=== PATIENT | female | born 1970 | race Caucasian/White ===

== ENCOUNTER 2019-06-19 09:45 | Outpatient (CLI) | payer OTHER, SELFPAY | END 2019-06-19 09:46 | disposition home or self-care (01) | LOC: ANHBWCAUD 09:54 | PROVIDERS: PCP Internal Medicine; Visit Provider Internal Medicine | DX: H90.3 Sensorineural hearing loss, bilateral (principal) | CPT/HCPCS: 92557; 92567 ==

== ENCOUNTER 2020-05-13 10:04 | Outpatient (CLI) | payer OTHER, SELFPAY | END 2020-05-13 10:05 | disposition home or self-care (01) | LOC: ANHBWCAUD 10:04 | PROVIDERS: PCP Internal Medicine; Visit Provider Internal Medicine | DX: H91.93 Unspecified hearing loss, bilateral (principal) | CPT/HCPCS: 92557; 92567 ==

== ENCOUNTER 2020-05-23 12:06 | Outpatient (RCR) | payer OTHER, SELFPAY | END 2020-08-21 23:59 | disposition home or self-care (01) | LOC: ANHBWCAUD 12:06 | PROVIDERS: PCP Internal Medicine; Visit Provider Internal Medicine | DX: Z46.1 Encounter for fitting and adjustment of hearing aid (principal) | CPT/HCPCS: V5160; V5261 ==

== ENCOUNTER 2020-07-07 13:00 | Emergency (ER) | payer OTHER, SELFPAY ==
--- NOTE | ~2020-07-07 | XR_ITS ---
EXAMINATION: XR chest 2V EXAM DATE: 07/07/2020 13:46 INDICATION: Cough for one week. Asthma. TECHNIQUE: Frontal and lateral projections of the chest obtained and reviewed. Comparison is made to prior examination from 01/22/2016. FINDINGS: The lungs are clear. There are no pleural effusions. The cardiomediastinal silhouette is within normal limits. There is no pneumothorax suspected. The bones and soft tissues are unremarkab le. IMPRESSION: No acute cardiopulmonary findings. Reviewed, dictated and finalized at location B.
--- NOTE | 2020-07-07 13:03 | ED.URI ---
HPI - URI/Sore Throat General Chief Complaint: Upper Respiratory Infection Stated Complaint: coughing and asthma trouble fever Time Seen by Provider: 07/07/20 13:04 Source: patient and RN notes reviewed History of Present Illness HPI Narrative: Patient is a 49-year-old female who presents the urgent care with complaints of cough, fever, and intermittent shortness of breath due to asthma exacerbation. Patient is very anxious and tearful. Patient states that last time she had the symptoms she was diagnosed with pneumonia and in the hospital . Patient states that she started the symptoms approximately 1-1/2 weeks ago and has taken a Z-Sukhi, completed 3 days ago. Patient states her PCP is aware of her symptoms. States that she has not had a productive cough and it feels like she has a lot of chest congestion . Patient has been using her nebulizers at home which do improve her symptoms. No other acute complaints. No acute distress noted. Patient aware of the plan of care. Some parts of this dictation were generated by voice recognition software and may contain typographical and/or grammatical inaccuracies. Related Data Home Medications Medication Instructions Recorded Confirmed albuterol sulfate 90 mcg INHALATION DIRECTED PRN 07/07/20 07/07/20 buspirone 7.5 mg PO BID 07/07/20 07/07/20 famotidine 20 mg PO BID 07/07/20 07/07/20 levothyroxine 112 mcg PO DAILY 07/07/20 07/07/20 loratadine 10 mg PO DAILY 07/07/20 07/07/20 montelukast 10 mg PO DAILY 07/07/20 07/07/20 simvastatin 10 mg PO DAILY 07/07/20 07/07/20 Allergies Allergy/AdvReac Type Severity Reaction Status Date / Time codeine AdvReac Unknown Nausea and Verified 07/07/20 13:15 Vomiting Penicillins AdvReac Unknown Nausea and Verified 07/07/20 13:15 Vomiting Review of Systems Review of Systems: Narrative: CONSTITUTIONAL: Reports of intermittent fevers EYES: Denies visual changes, redness, or discharge. ENT: Denies rhinorrhea, congestion, sore throat, or otalgia. CARDIOVASCULAR: Denies chest pain, palpitations, or edema. RESPIRATORY: Reports of dry cough with intermittent dyspnea and chest congestion GASTROINTESTINAL: Denies abdominal pain, nausea, vomiting, or diarrhea. GENITOURINARY: Denies dysuria or hematuria. SKIN: Denies rash or itching. MUSCULOSKELETAL: Denies back pain, joint pain, or myalgia. NEUROLOGIC: Denies headache, numbness, or weakness. All other systems reviewed are negative, except as documented in HPI. PMFSH Social History Social History Gender identity (if verbalized by the patient): Female Comments At the time of my signature, I reviewed and agree with the nursing past medical, surgical, social, and family history. There is no relevant family history pertinent to the patient complaint. Exam Narrative: Exam Narrative: GENERAL: This is a well-nourished, well-developed patient, in no apparent distress. HEAD: normocephalic, atraumatic. EYES: PERRL. Sclera clear/white. Vision is grossly intact. EARS: External ears normal, auditory canals clear and without drainage, TMs normal without perforation. Hearing grossly intact. NOSE: External nose normal with no obvious nasal discharge, nares without redness, no rhinorrhea. THROAT: Mucous membranes moist, posterior pharynx clear. Mild postnasal drainage NECK: Neck supple, non-tender without lymphadenopathy CARDIOVASCULAR: Regular rate and rhythm without murmurs, gallops, or rubs. RESPIRATORY: Expiratory crackles to right upper lobe and bibasilar. SKIN: warm, intact with no suspicious lesions or rash, good texture and turgor. NEURO: awake, alert, and oriented to person, place and time. There were no obvious focal neurologic abnormalities. EXTREMITIES: No clubbing, cyanosis, or edema. Course Vital Signs Vital signs: Vital Signs Temperature 98.9 F 07/07/20 13:06 Pulse Rate 92 07/07/20 13:06 Respiratory Rate 21 H 07/07/20 13:06 Blood Pressure 125/110 H 07/07/20 13:06 Pulse Oxime
[2020-07-07 13:06] VITALS: BP 125/110; PULSE 92; RESP 21; TEMP 37.2; O2SAT 100
[2020-07-07 13:50] VITALS: BP 128/96
== END 2020-07-07 14:19 | disposition home or self-care (01) ==
PROVIDERS: Emergency Provider Nurse Practitioner Family; PCP Internal Medicine
DX: R05 Cough (principal); E78.00 Pure hypercholesterolemia, unspecified; J45.909 Unspecified asthma, uncomplicated; K21.9 Gastro-esophageal reflux disease without esophagitis; E03.9 Hypothyroidism, unspecified; M19.90 Unspecified osteoarthritis, unspecified site; F41.0 Panic disorder [episodic paroxysmal anxiety]
CPT/HCPCS: 71046; 99213; G0463

== ENCOUNTER 2020-08-26 18:26 | Emergency (ER) | payer OTHER, SELFPAY ==
[2020-08-26 18:35] VITALS: BP 131/88; PULSE 99; RESP 18; TEMP 37.2; O2SAT 100
--- NOTE | 2020-08-26 18:44 | ED.URI ---
HPI - URI/Sore Throat General Chief Complaint: Upper Respiratory Infection Stated Complaint: fever sore throat Time Seen by Provider: 08/26/20 19:12 Source: patient and RN notes reviewed Mode of arrival: ambulatory Limitations: no limitations History of Present Illness HPI Narrative: 49-year-old female presents concern for sore throat, hoarse voice, painful swallowing, low-grade fever. Reports symptoms started yesterday. Reports she has been taking Tylenol with little relief. She denies rhinorrhea, nasal congestion, headache, fever, chills, body aches, cough, shortness of breath. She denies any known sick contacts. MD elicited complaint: sore throat Related Data Home Medications Medication Instructions Recorded Confirmed albuterol sulfate 90 mcg INHALATION DIRECTED PRN 07/07/20 08/26/20 buspirone 7.5 mg PO BID 07/07/20 08/26/20 famotidine 20 mg PO BID 07/07/20 08/26/20 levothyroxine 112 mcg PO DAILY 07/07/20 08/26/20 loratadine 10 mg PO DAILY 07/07/20 08/26/20 montelukast 10 mg PO DAILY 07/07/20 08/26/20 simvastatin 10 mg PO DAILY 07/07/20 08/26/20 beclomethasone dipropionate [Qvar 40 mcg INHALATION BID 08/26/20 08/26/20 RediHaler] omeprazole 20 mg PO DAILY 08/26/20 08/26/20 Allergies Allergy/AdvReac Type Severity Reaction Status Date / Time codeine AdvReac Unknown Nausea and Verified 07/07/20 13:15 Vomiting Penicillins AdvReac Unknown Nausea and Verified 07/07/20 13:15 Vomiting Review of Systems Review of Systems: Narrative: CONSTITUTIONAL: Denies malaise, chills, sweats, or fever. EYES: Denies visual changes, redness, or discharge. ENT: Denies rhinorrhea, congestion, sinus pain, otalgia. She reports hoarse voice and sore throat. CARDIOVASCULAR: Denies chest pain, palpitations, or edema. RESPIRATORY: Denies cough or dyspnea. GASTROINTESTINAL: Denies abdominal pain, nausea, vomiting, diarrhea SKIN: Denies rash or itching. MUSCULOSKELETAL: Denies myalgia. NEUROLOGIC: Denies headache. All systems reviewed & are unremarkable except as noted in HPI and below PMFSH Social History Social History Gender identity (if verbalized by the patient): Female Comments At time of signature, agree with nursing past medical, surgical, social and family history. There is no relevant family history pertinent to the presenting complaint Exam Narrative: Exam Narrative: GENERAL: Well-appearing, well-nourished, and in no acute distress. HEAD: Normocephalic EYES: PERRLA, conjunctivae clear ENT: Nares clear, turbinates erythematous, clear discharge. Mucous membranes moist. TM pearly spring with sharp light reflex bilaterally; no tragal tenderness. Oropharynx mildly erythematous without lesions. Tonsils not enlarged and without exudate, no drooling, no hoarseness, no trismus, uvula midline. NECK: Supple. No lymphadenopathy CHEST: Clear to auscultation, breath sounds equal. No wheezing, rhonchi, rales, or stridor. No respiratory distress, speaks in full sentences. HEART: Regular rate and rhythm. No murmur heard. SKIN: Warm, dry, no rash. NEURO: Alert and oriented x3. PSYCH: Normal mood and affect Course Course Emergency Course: Patient is aware of diagnosis, understands and agrees to treatment plan. Anticipatory guidance given. Patient agrees to follow-up as directed and is aware of reasons to seek care at the emergency department. Portions of this record may have been created with voice recognition software Vital Signs Vital signs: Vital Signs Temperature 98.9 F 08/26/20 18:35 Pulse Rate 99 08/26/20 18:35 Respiratory Rate 18 08/26/20 18:35 Blood Pressure 131/88 08/26/20 18:35 Pulse Oximetry 100 08/26/20 18:35 Temperature 98.9 F 08/26/20 18:35 Pulse Rate 99 08/26/20 18:35 Respiratory Rate 18 08/26/20 18:35 Blood Pressure 131/88 08/26/20 18:35 Pulse Oximetry 100 08/26/20 18:35 Reviewed. MDM - URI/Sore Throat MDM Narrative Medical decision making narrative: Differential di
== END 2020-08-26 19:25 | disposition home or self-care (01) ==
PROVIDERS: Emergency Provider Nurse Practitioner; PCP Internal Medicine
DX: J02.9 Acute pharyngitis, unspecified (principal)
CPT/HCPCS: 87081; 87880; 99213; G0463

== ENCOUNTER 2021-12-09 18:00 | Emergency (ER) | payer OTHER, SELFPAY ==
--- NOTE | 2021-12-09 18:02 | ED.URI ---
HPI - URI/Sore Throat General Stated Complaint: sore throat runny nose Ear headache Time Seen by Provider: 12/09/21 18:01 Source: patient Mode of arrival: ambulatory Limitations: no limitations History of Present Illness HPI Narrative: Nuria is a 50-year-old female patient presenting to the clinic today with complaints of sore throat, low-grade fever, runny nose, earache and headache since Tuesday She reports she was at [facility] last week and developed the symptoms on Tuesday. MD elicited complaint: sore throat and nasal congestion Related Data Home Medications Medication Instructions Recorded Confirmed albuterol sulfate 90 mcg/actuation 90 mcg inhalation DIRECTED PRN 07/07/20 08/26/20 aerosol inhaler Shortness Of Breath Or Wheezing buspirone 7.5 mg tablet 7.5 mg PO BID 07/07/20 08/26/20 famotidine 20 mg tablet 20 mg PO BID 07/07/20 08/26/20 levothyroxine 112 mcg tablet 112 mcg PO DAILY 07/07/20 08/26/20 loratadine 10 mg tablet 10 mg PO DAILY 07/07/20 08/26/20 montelukast 10 mg tablet 10 mg PO DAILY 07/07/20 08/26/20 simvastatin 10 mg tablet 10 mg PO DAILY 07/07/20 08/26/20 beclomethasone dipropionate 40 40 mcg inhalation BID 08/26/20 08/26/20 mcg/actuation HFA breath activated aerosol (Qvar RediHaler) omeprazole 20 mg capsule,delayed 20 mg PO DAILY 08/26/20 08/26/20 release Allergies Allergy/AdvReac Type Severity Reaction Status Date / Time codeine AdvReac Unknown Nausea and Verified 07/07/20 13:15 Vomiting Penicillins AdvReac Unknown Nausea and Verified 07/07/20 13:15 Vomiting Review of Systems Review of Systems: Pertinent positives per HPI. Patient denies any fever, chills, rash, visual changes, dizziness, cough, shortness of breath, chest pain, palpitations, nausea, vomiting, diarrhea, constipation, abdominal pain, or any urinary issues. [facility] Social History Social History Gender identity (if verbalized by the patient): Female Comments At the time of my signature, I reviewed and agree with the nursing past medical, surgical, social, and family history. There is no relevant family history pertinent to the patient complaint. Exam Narrative: General: Well-developed, well nourished, in no apparent distress Head: Normocephalic, atraumatic Eyes: Pupils equally round and reactive to light bilaterally, EOM intact, sclera and conjunctive clear, no discharge, lids normal Ears: TMs intact and clear, ear canals clear, no drainage, grossly hearing normal. Nose: Nares patent, no discharge, no inflammation, no sinus tenderness. Mouth: Oral pharynx without lesions or masses, good dentition, MMM. Neck: Supple, trachea midline, no enlargement of anterior or posterior cervical nodes, no thyroid masses or goiter palpable. Cardio: Regular rate and rhythm, s1 and s2 normal, no murmur appreciated. Resp: Clear to auscultation bilaterally, no rhonchi, rales, wheezing or rubs Course Course Emergency Course: Portions of this record may have been created with voice recognition software. Level of Care: Express Care Visit Vital Signs Vital signs: Vital signs reviewed MDM - URI/Sore Throat MDM Narrative Medical decision making narrative: At the time of visit patient is resting comfortably on exam table. Strep, COVID, influenza test were obtained and were negative in the clinic today. We will send strep for culture. I suspect the patient has an upper respiratory infection/viral syndrome. Supportive measures were discussed with the patient she voiced understanding of discharge instructions and agrees to treatment plan Differential Diagnosis Differential diagnosis: Likely upper respiratory infection, otitis media, sinusitis, viral infection, bronchitis, influenza, pharyngitis and other (COVID) Discharge Plan Discharge Clinical Impression: Viral infection Upper respiratory infection Qualifiers: URI type: unspecified viral URI Qual
[2021-12-09 18:09] VITALS: BP 128/83; PULSE 102; RESP 16; TEMP 36.6; O2SAT 99
== END 2021-12-09 18:41 | disposition home or self-care (01) ==
PROVIDERS: Emergency Provider Nurse Practitioner Family; PCP Internal Medicine
DX: B34.9 Viral infection, unspecified (principal); J06.9 Acute upper respiratory infection, unspecified; Z20.822 Contact with and (suspected) exposure to COVID-19; E78.00 Pure hypercholesterolemia, unspecified; J45.909 Unspecified asthma, uncomplicated; K21.9 Gastro-esophageal reflux disease without esophagitis; M19.90 Unspecified osteoarthritis, unspecified site; E03.9 Hypothyroidism, unspecified
CPT/HCPCS: 87081; 87426; 87804; 87880; 99213; C9803; G0463

== ENCOUNTER 2022-05-13 08:56 | Emergency (ER) | payer OTHER, SELFPAY ==
[2022-05-13 09:09] VITALS: BP 140/52; PULSE 53; RESP 16; TEMP 36.3; O2SAT 99
--- NOTE | 2022-05-13 09:10 | ED.URI ---
HPI - URI/Sore Throat General Chief Complaint: Upper Respiratory Infection Stated Complaint: Body Aches/Congestion Time Seen by Provider: 05/13/22 09:25 Source: patient and RN notes reviewed Mode of arrival: ambulatory Limitations: no limitations History of Present Illness HPI Narrative: 51-year-old female presents concern for nasal congestion, rhinorrhea, scratchy throat, generalized body aches that started yesterday. Reports a diagnosis of fibromyalgia for which she takes no daily medications. She denies shortness of breath, fever, chills. She reports her has similar symptoms. She has been taking NSAIDs and allergy medicine MD elicited complaint: cough and sore throat Related Data Home Medications Medication Instructions Recorded Confirmed albuterol sulfate 90 mcg/actuation 90 mcg inhalation DIRECTED PRN 07/07/20 05/13/22 aerosol inhaler Shortness Of Breath Or Wheezing buspirone 7.5 mg tablet 7.5 mg PO BID 07/07/20 05/13/22 famotidine 20 mg tablet 20 mg PO BID 07/07/20 05/13/22 levothyroxine 112 mcg tablet 112 mcg PO DAILY 07/07/20 05/13/22 loratadine 10 mg tablet 10 mg PO DAILY 07/07/20 05/13/22 montelukast 10 mg tablet 10 mg PO DAILY 07/07/20 05/13/22 simvastatin 10 mg tablet 10 mg PO DAILY 07/07/20 05/13/22 beclomethasone dipropionate 40 40 mcg inhalation BID 08/26/20 05/13/22 mcg/actuation HFA breath activated aerosol (Qvar RediHaler) omeprazole 20 mg capsule,delayed 20 mg PO DAILY 08/26/20 05/13/22 release Allergies Allergy/AdvReac Type Severity Reaction Status Date / Time codeine AdvReac Unknown Nausea and Verified 05/13/22 09:10 Vomiting Penicillins AdvReac Unknown Nausea and Verified 05/13/22 09:10 Vomiting Review of Systems Review of Systems: CONSTITUTIONAL: Reports malaise,. Denies fever. EYES: Denies visual changes, redness, or discharge. ENT: Reports rhinorrhea, congestion, and sore throat. Denies sinus pain, otalgia CARDIOVASCULAR: Denies chest pain, palpitations, or edema. RESPIRATORY: Denies cough. Denies dyspnea. GASTROINTESTINAL: Denies abdominal pain, nausea, vomiting, diarrhea SKIN: Denies rash or itching. MUSCULOSKELETAL: Reports myalgia. NEUROLOGIC: Denies headache. All systems reviewed & are unremarkable except as noted in HPI and below PMFSH Social History Social History Gender identity (if verbalized by the patient): Female Comments At time of signature, agree with nursing past medical, surgical, social and family history. There is no relevant family history pertinent to the presenting complaint Exam Narrative: GENERAL: Nontoxic-appearing and in no acute distress. HEAD: Normocephalic EYES: PERRLA, conjunctivae clear ENT: Nares clear, turbinates edematous and erythematous, clear discharge. Mucous membranes moist. TM pearly spring with dull light reflex bilaterally; no tragal tenderness. Oropharynx not erythematous without lesions. Tonsils not enlarged and without exudate, no drooling, no hoarseness, no trismus, uvula midline. NECK: Supple. No lymphadenopathy CHEST: Clear to auscultation, breath sounds equal. No wheezing, rhonchi, rales, or stridor. No respiratory distress, speaks in full sentences. HEART: Regular rate and rhythm. No murmur heard. SKIN: Warm, dry, no rash. NEURO: Alert and oriented x3. PSYCH: Normal mood and affect Course Course Emergency Course: Patient is aware of diagnosis, understands and agrees to treatment plan. Anticipatory guidance given. Patient agrees to follow-up as directed and is aware of reasons to seek care at the emergency department. Portions of this record may have been created with voice recognition software Level of Care: Express Care Visit Vital Signs Vital signs: Reviewed. MDM - URI/Sore Throat MDM Narrative Medical decision making narrative: Differential diagnosis considered: Barrera virus, strep pharyngitis, allergic rhinitis, upper respira
== END 2022-05-13 10:01 | disposition home or self-care (01) ==
PROVIDERS: Emergency Provider Nurse Practitioner; PCP Internal Medicine
DX: U07.1 COVID-19 (principal); E78.00 Pure hypercholesterolemia, unspecified; J45.909 Unspecified asthma, uncomplicated; M19.90 Unspecified osteoarthritis, unspecified site; E03.9 Hypothyroidism, unspecified; F41.9 Anxiety disorder, unspecified; F41.0 Panic disorder [episodic paroxysmal anxiety]
CPT/HCPCS: 87081; 87426; 87804; 87880; 99213; C9803; G0463

== ENCOUNTER 2022-10-07 16:12 | Emergency (ER) | payer OTHER, SELFPAY ==
--- NOTE | 2022-10-07 16:26 | ED.GENADULT ---
HPI - General Adult General Chief complaint: Nausea/Vomiting/Diarrhea Stated complaint: Diarrhea and Body Ache Source: patient and RN notes reviewed History of Present Illness HPI narrative: 51 yo F presents to urgent care with complaints of nausea, diarrhea, CHAN, and body aches. Pt states she has had these symptoms for the last 4 days. Pt denies any vomiting or abdominal cramping but states her stomach lining hurts, like when you get sunburnt and the skin peels off. Pt states she began having dysuria yesterday. Denies any chest pain, SOB, dizziness, or other complaints. Pt has taken immodium at home with good relief. Related Data Home Medications Medication Instructions Recorded Confirmed albuterol sulfate 90 mcg/actuation 90 mcg inhalation DIRECTED PRN 07/07/20 05/13/22 aerosol inhaler Shortness Of Breath Or Wheezing buspirone 7.5 mg tablet 7.5 mg PO BID 07/07/20 05/13/22 famotidine 20 mg tablet 20 mg PO BID 07/07/20 05/13/22 levothyroxine 112 mcg tablet 112 mcg PO DAILY 07/07/20 05/13/22 loratadine 10 mg tablet 10 mg PO DAILY 07/07/20 05/13/22 montelukast 10 mg tablet 10 mg PO DAILY 07/07/20 05/13/22 simvastatin 10 mg tablet 10 mg PO DAILY 07/07/20 05/13/22 beclomethasone dipropionate 40 40 mcg inhalation BID 08/26/20 05/13/22 mcg/actuation HFA breath activated aerosol (Qvar RediHaler) omeprazole 20 mg capsule,delayed 20 mg PO DAILY 08/26/20 05/13/22 release Allergies Allergy/AdvReac Type Severity Reaction Status Date / Time codeine AdvReac Unknown Nausea and Verified 05/13/22 09:10 Vomiting Penicillins AdvReac Unknown Nausea and Verified 05/13/22 09:10 Vomiting Review of Systems Review of Systems: Pertinent positives and pertinent negatives per HPI. [facility] Social History Social History Gender identity (if verbalized by the patient): Female Comments At the time of my signature, I reviewed and agree with the nursing past medical, surgical, social, and family history. There is no relevant family history pertinent to the patient complaint. Exam Narrative: GENERAL: This is a well-nourished, well-developed patient, in no apparent distress. HEAD: normocephalic, atraumatic. EYES: Sclera clear/white. Vision is grossly intact. EARS: External ears normal, auditory canals clear and without drainage. Hearing grossly intact. NOSE: External nose normal with no obvious nasal discharge, nares without redness, no rhinorrhea. THROAT: Mucous membranes moist, posterior pharynx clear. NECK: Neck supple, non-tender without lymphadenopathy, masses or thyromegaly. CARDIOVASCULAR: Regular rate and rhythm without murmurs, gallops, or rubs. RESPIRATORY: Clear to auscultation. Breath sounds equal bilaterally. No wheezes, rales, or rhonchi. GASTROINTESTINAL: Abdomen soft, non-tender, nondistended. Bowel sounds are active. No hepato-splenomegaly, or palpable masses. No guarding. SKIN: warm, intact with no suspicious lesions or rash, good texture and turgor. NEURO: awake, alert, and oriented to person, place and time. There were no obvious focal neurologic abnormalities. Course Course Level of Care: Express Care Visit Vital Signs Vital signs: Reviewed Medical Decision Making MDM Narrative Medical decision making narrative: You've been diagnosed with a viral illness that would not require antibiotics at this time. Take the Zofran ODT at home as directed for nausea and get plenty of fluids. You may take Imodium for diarrhea. If you would like to eat food, you should follow the BRAT diet (bananas, rice, applesauce, and toast, or things of the like). If you develop any new or worsening symptoms, you should go to the emergency dept without hesitation. Follow up with your magnetic grinder operator in 2-5 days. We will send a urine culture off to the lab; if the culture identifies an organism that the prescribed antibiotic will not treat, you will receive a
[2022-10-07 16:28] VITALS: BP 127/60; PULSE 77; RESP 16; TEMP 36.5; O2SAT 98
== END 2022-10-07 16:51 | disposition home or self-care (01) ==
PROVIDERS: Emergency Provider Nurse Practitioner Family; PCP Internal Medicine
DX: K52.9 Noninfective gastroenteritis and colitis, unspecified (principal); N39.0 Urinary tract infection, site not specified; E78.00 Pure hypercholesterolemia, unspecified; J45.909 Unspecified asthma, uncomplicated; M19.90 Unspecified osteoarthritis, unspecified site; E03.9 Hypothyroidism, unspecified
CPT/HCPCS: 81003; 87086; 87088; 99213; G0463

== ENCOUNTER 2022-12-06 16:15 | Emergency (ER) | payer OTHER, SELFPAY ==
[2022-12-06 16:25] VITALS: BP 147/72; PULSE 85; RESP 20; TEMP 36.7; O2SAT 98
--- NOTE | 2022-12-06 16:43 | ED.URI ---
HPI - URI/Sore Throat General Chief Complaint: Upper Respiratory Infection Stated Complaint: head congestion/throat History of Present Illness HPI Narrative: PATIENT PRESENTS WITH NASAL CONGESTION COUGH RUNNY NOSE. NO FEVER NO SHORTNESS OF BREATH NO CHEST PAIN. Related Data Home Medications Medication Instructions Recorded Confirmed albuterol sulfate 90 mcg/actuation 90 mcg inhalation DIRECTED PRN 07/07/20 12/06/22 aerosol inhaler Shortness Of Breath Or Wheezing buspirone 7.5 mg tablet 7.5 mg PO BID 07/07/20 12/06/22 famotidine 20 mg tablet 20 mg PO BID 07/07/20 12/06/22 levothyroxine 112 mcg tablet 112 mcg PO DAILY 07/07/20 12/06/22 loratadine 10 mg tablet 10 mg PO DAILY 07/07/20 12/06/22 montelukast 10 mg tablet 10 mg PO DAILY 07/07/20 12/06/22 simvastatin 10 mg tablet 10 mg PO DAILY 07/07/20 12/06/22 beclomethasone dipropionate 40 40 mcg inhalation BID 08/26/20 12/06/22 mcg/actuation HFA breath activated aerosol (Qvar RediHaler) omeprazole 20 mg capsule,delayed 20 mg PO DAILY 08/26/20 12/06/22 release Allergies Allergy/AdvReac Type Severity Reaction Status Date / Time codeine AdvReac Unknown Nausea and Verified 12/06/22 16:34 Vomiting Penicillins AdvReac Unknown Nausea and Verified 12/06/22 16:34 Vomiting Review of Systems Review of Systems: CONSTITUTIONAL: DENIES CHILLS, OR SWEATS. REPORTS FEVER AND GENERALIZED BODY ACHES EYES: DENIES VISUAL CHANGES, REDNESS, OR DISCHARGE. ENT: DENIES OTALGIA. REPORTS NASAL CONGESTION RUNNY NOSE AND SORE THROAT CARDIOVASCULAR: DENIES CHEST PAIN, PALPITATIONS, OR EDEMA. RESPIRATORY: DENIES DYSPNEA. REPORTS OCCASIONAL COUGH GASTROINTESTINAL: DENIES ABDOMINAL PAIN, NAUSEA, VOMITING, OR DIARRHEA. GENITOURINARY: DENIES DYSURIA OR HEMATURIA. SKIN: DENIES RASH OR ITCHING. MUSCULOSKELETAL: DENIES BACK PAIN, JOINT PAIN, OR MYALGIA. REPORTS GENERALIZED BODY ACHES NEUROLOGIC: DENIES HEADACHE, NUMBNESS, OR WEAKNESS. PSYCHIATRIC: DENIES ANXIETY OR DEPRESSION. [facility] Social History Social History (Reviewed 12/09/21 @ 18:03 by MARIPOSA Vickers Gender identity (if verbalized by the patient): Female Comments AT TIME OF SIGNATURE, AGREE WITH NURSING PAST MEDICAL, SURGICAL, SOCIAL AND FAMILY HISTORY. THERE IS NO RELEVANT FAMILY HISTORY PERTINENT TO THE PRESENTING COMPLAINT Exam Narrative: THE PATIENT IS A WELL-DEVELOPED, WELL-NOURISHED IN NO ACUTE DISTRESS. SKIN: SKIN IS WARM AND DRY WITHOUT ERYTHEMA, SWELLING OR EXUDATE. THERE IS GOOD TURGOR. NO TENTING. HEAD: ATRAUMATIC. NORMOCEPHALIC. NO TEMPORAL OR SCALP TENDERNESS. EYES: MOIST AND BRIGHT. SCLERA AND CONJUNCTIVAE NORMAL. NO DISCHARGE. PERRLA. EXTRAOCULAR MOTIONS INTACT. GROSS VISUAL ACUITY INTACT. EARS: PINNA IS NORMAL SHAPE AND CONTOUR. CLEAR EXTERNAL AUDITORY CANALS. TM PEARLY RICHARDSON WITH GOOD CONE OF LIGHT, NO ERYTHEMA OR SUPPURATION. BILATERAL CERUMEN NOTED NO GROSS HEARING DEFICIT. NOSE: PINK, MOIST MUCOSA WITH GOOD AIR MOVEMENT. CLEAR RHINORRHEA WITHOUT NASAL FLARING. SEPTUM MIDLINE. MOUTH: MOIST MUCOUS MEMBRANES. THROAT; MILD ERYTHEMA NOTED TO POSTERIOR OROPHARYNX WITH MODERATE POSTNASAL DRAINAGE. WITHOUT EXUDATE OR ULCERATION.. UVULA MIDLINE. NORMAL MOVEMENT OF SOFT PALATE. NECK: SUPPLE AND NONTENDER WITH FULL RANGE OF MOTION WITHOUT DISCOMFORT. NO MENINGEAL SIGNS. LUNGS: EQUAL AND BILATERAL BREATH SOUNDS WITHOUT WHEEZES, RALES OR RHONCHI. CHEST: THE CHEST WALL IS WITHOUT RETRACTIONS OR USE OF ACCESSORY MUSCLES. HEART: HAS A REGULAR RATE AND RHYTHM WITHOUT MURMUR, GALLOPS, CLICK OR RUB. ABDOMEN: SOFT, NONTENDER WITH POSITIVE ACTIVE BOWEL SOUNDS. NO REBOUND TENDERNESS. EXTREMITIES: WITHOUT CYANOSIS, CLUBBING OR EDEMA. EQUAL 2+ DISTAL PULSES AND 2 SECOND CAPILLARY REFILL NOTED. NEUROLOGIC: ALERT, ACTIVE, . THE PATIENT MOVES ALL EXTREMITIES WITH NORMAL MUSCLE STRENGTH. NORMAL MUSCLE TONE IS NOTED. NORMAL COORDINATION IS NOTED. NO FOCAL NEUROLOGICAL FINDINGS NOTED. Course Course Level of Care
== END 2022-12-06 16:48 | disposition home or self-care (01) ==
PROVIDERS: Emergency Provider Nurse Practitioner Family; PCP Internal Medicine
DX: J06.9 Acute upper respiratory infection, unspecified (principal); Z79.899 Other long term (current) drug therapy
CPT/HCPCS: 99213; G0463

== ENCOUNTER 2022-12-23 18:32 | Emergency (ER) | payer OTHER, SELFPAY ==
[2022-12-23 18:41] VITALS: BP 151/71; PULSE 93; RESP 18; TEMP 36.3; O2SAT 97
[2022-12-23 18:52] VITALS: BP 151/71; PULSE 93; RESP 18; TEMP 36.3; O2SAT 97
--- NOTE | 2022-12-23 19:24 | ED.URI ---
HPI - URI/Sore Throat General Chief Complaint: Upper Respiratory Infection Stated Complaint: Diarrhea/Cough/Body Aches Time Seen by Provider: 12/23/22 18:55 Source: patient, RN notes reviewed and old records reviewed Mode of arrival: ambulatory Limitations: no limitations History of Present Illness HPI Narrative: 52-year-old female who presents to [facility] with complaints having COVID 2 weeks ago, and completed steroid one week ago. having runny nose, cough, stuffy nose , doesn't feel well since yesterday. Patient reports that her asthma is bothering her today and she has cough, feels tired, had some diarrhea, feels hot and cold and also had low grade fevers and achy. Saw her PCP last Tuesday told her to rest. drink lots of fluids and soup MD elicited complaint: cough and sore throat Pertinent past history: asthma Onset (ago): week(s) (2) Able to tolerate fluids by mouth: Yes Treatments prior to arrival: other (Aleve, inhaler, finished steroid) Related Data Home Medications Medication Instructions Recorded Confirmed albuterol sulfate 90 mcg/actuation 90 mcg inhalation DIRECTED PRN 07/07/20 12/23/22 aerosol inhaler Shortness Of Breath Or Wheezing buspirone 7.5 mg tablet 7.5 mg PO BID 07/07/20 12/23/22 famotidine 20 mg tablet 20 mg PO BID 07/07/20 12/23/22 levothyroxine 112 mcg tablet 112 mcg PO DAILY 07/07/20 12/23/22 loratadine 10 mg tablet 10 mg PO DAILY 07/07/20 12/23/22 montelukast 10 mg tablet 10 mg PO DAILY 07/07/20 12/23/22 simvastatin 10 mg tablet 10 mg PO DAILY 07/07/20 12/23/22 beclomethasone dipropionate 40 40 mcg inhalation BID 08/26/20 12/23/22 mcg/actuation HFA breath activated aerosol (Qvar Redaler) omeprazole 20 mg capsule,delayed 20 mg PO DAILY 08/26/20 12/23/22 release fluticasone propionate 50 intranasal 12/23/22 mcg/actuation nasal spray,suspension gabapentin 100 mg capsule 100 mg PO HS 12/23/22 12/23/22 tizanidine 4 mg tablet 4 mg PO BID 12/23/22 12/23/22 Allergies Allergy/AdvReac Type Severity Reaction Status Date / Time codeine AdvReac Unknown Nausea and Verified 12/23/22 18:48 Vomiting Penicillins AdvReac Unknown Nausea and Verified 12/23/22 18:48 Vomiting Review of Systems Review of Systems: CONSTITUTIONAL: Reports malaise, chills, sweats, or fever. EYES: Denies visual changes, redness, or discharge. ENT: Reports rhinorrhea, congestion, sinus pain, no otalgia and intermittent sore throat. CARDIOVASCULAR: Denies chest pain, palpitations, or edema. RESPIRATORY: Reports cough.? Denies dyspnea. GASTROINTESTINAL: Denies abdominal pain, nausea, vomiting, some diarrhea SKIN: Denies rash or itching. MUSCULOSKELETAL: reports feels achy NEUROLOGIC: Denies headache. All systems reviewed & are unremarkable except as noted in HPI and below PMFSH Past Medical History Medical History (Updated 12/26/22 @ 20:29 by Brittany Hirsch NP) Anxiety and depression Asthma Bronchitis GERD (gastroesophageal reflux disease) Pneumonia Umbilical hernia repair Surgical History Surgical History (Updated 12/26/22 @ 20:26 by Brittany Hirsch NP) History of cataract surgery Tubal ligation status Social History Social History Gender identity (if verbalized by the patient): Female Comments At time of signature, agree with nursing past medical, surgical, social and family history. There is no relevant family history pertinent to the presenting complaint Exam Narrative: GENERAL: Well-appearing, well-nourished, and in no acute distress. HEAD: Normocephalic EYES: PERRLA, conjunctivae clear ENT: Nares clear, turbinates edematous and erythematous, clear discharge. Mucous membranes moist. TM pearly spring with dull light reflex bilaterally; no tragal tenderness. Oropharynx erythematous without lesions. Tonsils not enlarged and without exudate, no drooling, no hoarseness, no trismus, uvula mi
== END 2022-12-23 19:40 | disposition home or self-care (01) ==
PROVIDERS: Emergency Provider Registered Nurse; PCP Internal Medicine
DX: J06.9 Acute upper respiratory infection, unspecified (principal); J45.909 Unspecified asthma, uncomplicated; K21.9 Gastro-esophageal reflux disease without esophagitis; F41.9 Anxiety disorder, unspecified; F32.A Depression, unspecified
CPT/HCPCS: 87804; 99213; G0463

== ENCOUNTER 2023-04-10 10:57 | Emergency (ER) | payer OTHER, SELFPAY ==
[2023-04-10 11:03] VITALS: BP 158/89; PULSE 73; RESP 18; TEMP 36.4; O2SAT 97
--- NOTE | 2023-04-10 12:24 | ED.URI ---
HPI - URI/Sore Throat General Chief Complaint: Upper Respiratory Infection Stated Complaint: Nausea/Dizziness/Congestion Time Seen by Provider: 04/10/23 12:15 Source: patient, RN notes reviewed and old records reviewed Mode of arrival: ambulatory Limitations: no limitations History of Present Illness HPI Narrative: 52-year-old female who presents [facility] accompanied by spouse with complaints of nausea, stuffy nose, whole body hurts, feeling dizzy with no fevers which started this morning. Patient reports no sore throat or any ear pain states some cold sweats, has taken some Claritin and Ibuprofen today MD elicited complaint: cough and sore throat Onset (ago): hour(s) (This morning at 7:00 a.m.) Pain scale (0-10): 4 Able to tolerate fluids by mouth: Yes Treatments prior to arrival: ibuprofen and other (Claritin) Related Data Home Medications Medication Instructions Recorded Confirmed albuterol sulfate 90 mcg/actuation 90 mcg inhalation DIRECTED PRN 07/07/20 12/23/22 aerosol inhaler Shortness Of Breath Or Wheezing buspirone 7.5 mg tablet 7.5 mg PO BID 07/07/20 12/23/22 famotidine 20 mg tablet 20 mg PO BID 07/07/20 12/23/22 levothyroxine 112 mcg tablet 112 mcg PO DAILY 07/07/20 12/23/22 loratadine 10 mg tablet 10 mg PO DAILY 07/07/20 12/23/22 montelukast 10 mg tablet 10 mg PO DAILY 07/07/20 12/23/22 simvastatin 10 mg tablet 10 mg PO DAILY 07/07/20 12/23/22 beclomethasone dipropionate 40 40 mcg inhalation BID 08/26/20 12/23/22 mcg/actuation HFA breath activated aerosol (Qvar RediHaler) omeprazole 20 mg capsule,delayed 20 mg PO DAILY 08/26/20 12/23/22 release fluticasone propionate 50 intranasal 12/23/22 mcg/actuation nasal spray,suspension gabapentin 100 mg capsule 100 mg PO HS 12/23/22 12/23/22 tizanidine 4 mg tablet 4 mg PO BID 12/23/22 12/23/22 azelastine 0.05 % eye drops drp 04/10/23 04/10/23 flunisolide 25 mcg (0.025 %) nasal intranasal 04/10/23 spray polyethylene glycol 3350 17 g 04/10/23 gram/dose oral powder Allergies Allergy/AdvReac Type Severity Reaction Status Date / Time codeine AdvReac Unknown Nausea and Verified 04/10/23 11:20 Vomiting Penicillins AdvReac Unknown Nausea and Verified 04/10/23 11:20 Vomiting Review of Systems Review of Systems: CONSTITUTIONAL:Reports malaise, chills, sweats, no known fevers EYES: Denies visual changes, redness, or discharge. ENT: Reports rhinorrhea, congestion, no sinus pain,no otalgia and no sore throat. CARDIOVASCULAR: Denies chest pain, palpitations, or edema. RESPIRATORY: Reports cough.? Denies dyspnea. GASTROINTESTINAL: Denies abdominal pain, positive nausea, vomiting, no diarrhea SKIN: Denies rash or itching. MUSCULOSKELETAL: Reports myalgia. NEUROLOGIC: Denies headache. All systems reviewed & are unremarkable except as noted in HPI and below PMFSH Past Medical History Medical History Anxiety and depression Asthma Bronchitis GERD (gastroesophageal reflux disease) Pneumonia Umbilical hernia repair Surgical History Surgical History History of cataract surgery Tubal ligation status Social History Social History Gender identity (if verbalized by the patient): Female Comments At time of signature, agree with nursing past medical, surgical, social and family history. There is no relevant family history pertinent to the presenting complaint Exam Narrative: GENERAL: Well-appearing, well-nourished, and in no acute distress. HEAD: Normocephalic EYES: PERRLA, conjunctivae clear ENT: Nares clear, turbinates edematous and erythematous, clear discharge. Mucous membranes moist. TM pearly spring with dull light reflex bilaterally; no tragal tenderness. Oropharynx erythematous without lesions. Tonsils not enlarged and without exudate
== END 2023-04-10 12:42 | disposition home or self-care (01) ==
PROVIDERS: Emergency Provider Registered Nurse; PCP Internal Medicine
DX: B34.9 Viral infection, unspecified (principal); Z20.822 Contact with and (suspected) exposure to COVID-19; J45.909 Unspecified asthma, uncomplicated; K21.9 Gastro-esophageal reflux disease without esophagitis
CPT/HCPCS: 87426; 87804; 99213; G0463

== ENCOUNTER 2023-04-19 13:06 | Outpatient (CLI) | payer OTHER, SELFPAY | END 2023-04-19 13:07 | disposition home or self-care (01) | LOC: ANHBWCAUD 13:07 | PROVIDERS: PCP Internal Medicine; Visit Provider Internal Medicine | DX: H90.3 Sensorineural hearing loss, bilateral (principal) | CPT/HCPCS: 92557; 92567 ==

== ENCOUNTER 2023-06-15 09:00 | Emergency (ER) | payer OTHER, SELFPAY ==
[2023-06-15 09:08] VITALS: BP 155/63; PULSE 51; RESP 18; TEMP 36.3; O2SAT 98
--- NOTE | 2023-06-15 09:21 | ED.GENADULT ---
HPI - General Adult General Chief complaint: Upper Respiratory Infection Stated complaint: cough/throat/wheezing Time Seen by Provider: 06/15/23 09:21 Source: patient, RN notes reviewed and old records reviewed Mode of arrival: ambulatory Limitations: no limitations History of Present Illness HPI narrative: 52-year-old female to [facility] with complaint nasal congestion, nonproductive cough, chest and back discomfort from coughing and sinus tenderness for 5 days. Patient denies fever, shortness of breath, chest pain. Patient denies pertinent medical history. Patient reports taking negative COVID test at home 3 days ago. Respirations even and nonlabored. No signs of distress. Related Data Home Medications Medication Instructions Recorded Confirmed albuterol sulfate 90 mcg/actuation 90 mcg inhalation DIRECTED PRN 07/07/20 06/15/23 aerosol inhaler Shortness Of Breath Or Wheezing buspirone 7.5 mg tablet 7.5 mg PO BID 07/07/20 06/15/23 famotidine 20 mg tablet 20 mg PO BID 07/07/20 06/15/23 levothyroxine 112 mcg tablet 112 mcg PO DAILY 07/07/20 06/15/23 loratadine 10 mg tablet 10 mg PO DAILY 07/07/20 06/15/23 montelukast 10 mg tablet 10 mg PO DAILY 07/07/20 06/15/23 simvastatin 10 mg tablet 10 mg PO DAILY 07/07/20 06/15/23 beclomethasone dipropionate 40 40 mcg inhalation BID 08/26/20 06/15/23 mcg/actuation HFA breath activated aerosol (Qvar RediHaler) omeprazole 20 mg capsule,delayed 20 mg PO DAILY 08/26/20 06/15/23 release fluticasone propionate 50 1 spray intranasal DAILY 12/23/22 06/15/23 mcg/actuation nasal spray,suspension gabapentin 100 mg capsule 100 mg PO HS 12/23/22 06/15/23 tizanidine 4 mg tablet 4 mg PO BID 12/23/22 06/15/23 azelastine 0.05 % eye drops 1 drp ophthalmic (eye) DAILY 04/10/23 06/15/23 polyethylene glycol 3350 17 17 g PO PRN PRN Constipation 04/10/23 06/15/23 gram/dose oral powder simvastatin 20 mg tablet 20 mg PO DAILY 06/15/23 06/15/23 spironolactone 25 mg tablet 25 mg PO DAILY 06/15/23 06/15/23 Allergies Allergy/AdvReac Type Severity Reaction Status Date / Time codeine AdvReac Unknown Nausea and Verified 06/15/23 09:16 Vomiting Penicillins AdvReac Unknown Nausea and Verified 06/15/23 09:16 Vomiting Review of Systems Review of Systems: All systems reviewed & are unremarkable except as noted in HPI and below Constitutional: Constitutional: Reports as per HPI, Denies body ache(s), Denies chills and Denies fever(s) Eyes: Eyes: Reports no additional eye complaints ENT: Reports as per HPI, Reports nasal congestion, Reports nasal discharge, Reports sinus pressure and Reports sore throat Cardiovascular: Cardiovascular: Reports no additional cardiovascular complaints, Denies chest pain and Denies dyspnea Respiratory: Respiratory: Reports no additional respiratory complaints, Reports cough, Reports pain with cough and Denies dyspnea Musculoskeletal: Musculoskeletal: Reports no additional musculoskeletal complaints Neurologic: Reports system reviewed and no additional complaints, except as documented Psychiatric: Psychiatric: Reports no additional psychiatric complaints PMFSH Past Medical History Medical History Anxiety and depression Asthma Bronchitis GERD (gastroesophageal reflux disease) Pneumonia Umbilical hernia repair Surgical History Surgical History History of cataract surgery Tubal ligation status Social History Social History Gender identity (if verbalized by the patient): Female Comments At the time of my signature, I reviewed and agree with the nursing past medical, surgical, social, and family history. There is no relevant family history pertinent to the patient complaint. Exam Const: General: cooperative, comfortable, no acute distress, alert, ill georgaina
== END 2023-06-15 10:14 | disposition home or self-care (01) ==
PROVIDERS: Emergency Provider Nurse Practitioner Family; PCP Internal Medicine
DX: J01.80 Other acute sinusitis (principal); J45.909 Unspecified asthma, uncomplicated; K21.9 Gastro-esophageal reflux disease without esophagitis; F41.9 Anxiety disorder, unspecified; F32.A Depression, unspecified
CPT/HCPCS: 87081; 87880; 99213; G0463

== ENCOUNTER 2024-07-20 17:09 | Emergency (ER) | payer OTHER, SELFPAY ==
--- OUTSIDE RECORDS SUMMARY | 2024-07-21 15:00 | XMS_ITS | Referral Summary ---
Author Organization [facility] Address [address] [place] [address] Care Team Providers Care Transmitter Tester Name Role Phone Halie Winslow MD Primary Care Provider [phone] Marcos He MD Unavailable [phone] Encounters Date Type Department Care Team Description 07/02/2024 11:00 AM CDT Office Visit [employer] [id number] [address] Mixed hyperlipidemia (Primary Dx) 05/11/2024 Results Follow-Up [facility] [address] [place] [address] [address] [place] [address] Elyssa Cherry CMA 04/26/2024 Orders Only [facility] [address] [place] [address] Ra Rosas MD PhD Neoplasm of unspecified behavior of bone, soft tissue, and skin 04/25/2024 Telephone [facility] [address] [place] [address] [address] [place] [address] Ra Rosas MD PhD Scheduling Appointments 04/25/2024 2:45 PM STEEL [facility] Office Visit [facility] [address] [place] [address] [address] [place] [address] Ra Rosas MD PhD Neoplasm of unspecified behavior of bone, soft tissue, and skin (Primary Dx); Rosacea; Lichen simplex chronicus; Acne rosacea from Last 3 Months Allergies Active Allergy Reactions Criticality Noted Date Comments Codeine Nausea only,Nausea And Vomiting,Vomiting Low 09/23/2019 Other reaction(s): Nausea and/or Vomiting Penicillins Nausea only,Nausea And Vomiting Medium 09/23/2019 Other reaction(s): Nausea and/or Vomiting Amstuic-Zqt-Vzm Reductase Inhibitors Other (See comments) Low 03/02/2024 Intolerance Medications levothyroxine (SYNTHROID) 112 mcg tablet Take 1 tablet (112 mcg total) by mouth international nurse before breakfast Active montelukast (SINGULAIR) 10 mg tablet Take 1 tablet (10 mg total) by mouth nightly Active cyanocobalamin (Vitamin B-12) 100 mcg tabletIndicati ons:Prevention of Vitamin B12 Deficiency Take 1 tablet (100 mcg total) by mouth daily Patient not taking Active beclomethasone (QVAR) 40 mcg/actuation inhaler Inhale 2 puffs 2 (two) times a day Rinse mouth with water after use. Do not swallow. Active ibuprofen (ADVIL,MOTRIN) 200 mg tab/cap Take 1 tablet/capsul e (200 mg total) by mouth every 6 (six) hours as needed for pain Active azelastine (OPTIVAR) 0.05 % ophthalmic solution 11/23/19 21 Active dicyclomine (BENTYL) 10 mg capsule TAKE ONE CAPSULE BY MOUTH THREE TIMES DAILY NEEDED 11/21/19 21 Active gabapentin (NEURONTIN) 100 mg capsule TAKE 1 CAPSULE BY MOUTH EVERY DAY AT BEDTIME 11/25/19 21 Active loratadine (CLARITIN) 10 mg tablet Take 1 tablet (10 mg total) by mouth daily 12/10/19 21 Active albuterol HFA (PROVENTIL HFA,VENTOLIN HFA,PROAIR HFA) 90 mcg/actuation inhalerIndicat ions:Acute Asthma Attack,Broncho spasm Prevention Inhale 1-2 puffs every 6 (six) hours as needed for wheezing 1 each 3 03/13/19 23 Active furosemide (LASIX) 20 mg tablet Take 1 tablet (20 mg total) by mouth daily 30 tablet 11 06/06/19 24 Active atorvastatin (LIPITOR) 40 mg tablet Take 1 tablet (40 mg total) by mouth daily 30 tablet 11 11/04/19 24 025 Active triamcinolone (KENALOG) 0.1 % ointmentIndica tions:Lichen simplex chronicus Apply twice daily to raised, scaly areas of skin on thighs twice daily for up to two weeks at a time 30 g 1 04/25/19 25 Active doxycycline (doxycycline hyclate) 100 mg capsuleIndicat ions:Acne rosacea Take 1 tablet twice daily 60 capsule 3 04/25/19 25 Active metroNIDAZOLE (METROCREAM) 0.75 % creamIndicatio ns:Acne Rosacea Apply twice daily to areas of redness and rosacea 45 g 5 04/25/19 25 Active spironolactone (ALDACTONE) 25 mg tablet TAKE 1 TABLET(25 MG) BY MOUTH DAILY 30 tablet 11 07/10/19 25 Active spironolactone (ALDACTONE) 25 mg tablet Take 1 tablet (25 mg total) by mouth daily 30 tablet 11 06/06/19 24 025 Discontinued Active Problems Problem Noted Date Diagnosed Date Mixed hyperlipidemia 07/14/2023 Assessment & Plan (02/23/2024 12:42 PM STEEL CHIPPER): Discontinue statins. Start Leqvio. Assessment & Plan (07/14/2023 1:56 PM CDT): Continue simvastatin. Check Lipid panel Congestive heart failure 05/20/2023 Assessment & Plan (02/23/2024 12:43 PM STEEL CHIPPER): Continue furosemide and spironolactone. Advised regarding sodium intake. Assessment & Plan (07/14/2023 1:55 PM CDT): Continue furosemide and spironolactone. Check labs. Assessment & Plan (05/20/2023 1:06 PM CDT): Trans thoracic echocardiogram is substandard for diagnosis due to poor windows. 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 Assessment & Plan (05/20/2023 1:22 PM CDT): Associated Problems Long face with prominent upper jaw Underdeveloped lower jaw Low set ears Prominent nose with narrow nasal passages Thin upper lip with a down-slanted mouth Multiple abnormalities of the heart including ventricular septal defect (VSD), pulmonary atresia, tetralogy of Fallot, truncus arteriosus, interrupted or right-sided aortic arch and transposition of the great arteries Learning disabilities in one or more areas Hearing loss Speech problems Behavior problems, including anxiety, ADHD and depression Will need LEIGHANN to exclude undiagnosed Cardiac anomalies. Subacromial impingement of left shoulder 021 Lumbar strain, initial encounter 05/28/2020 Iron deficiency anemia 05/02/2020 Immunizations Immunization Administration Dates Next Due Influenza, Quadrivalent, Spl it, Intramuscular 12/03/2019,01/18/2019,12/05/2017,01/11,01/14/2016 Influenza, Quadrivalent, Spl it, Preservative Free, Intramuscular 12/03/2019,12/04/2017 Influenza, Trivalent, IM (MDV) 12/16/2012,2011 Influenza, Unspecified 04/04/2018 Moderna SARS-CoV-2 Monovalen t Vaccination (12+ YRS) 06/27/2020,05/30/2020 Pneumococcal Polysaccharide PPV23 06/28/2018 Social History Tobacco Use Types Packs/Day Years Used Date Smoking Tobacco: Former Smokeless Tobacco: Never Tobacco Cessation:Counseling Given: Not Answered Alcohol Use Standard Drinks/Week Comments No 0 (1 standard drink = 0.6 oz pur e alcohol) AUDIT-C Answer Date Recorded Q1: How often do you have a drink containing alcohol? Never 06/06/2023 Q2: How many drinks containi ng alcohol do you have on a typical day when you are drinking? Patient does not drink Q3: How often do you have si x or more drinks on one occasion? Never 06/06/2023 Personal Safety Answer Date Recorded Have you ever been in or are you currently in a harmful physical or emotional relationship or is someone making you feel afraid or unsafe? Denies 06/24/2023 Comments No Sex and Gender Information Value Date Recorded Sex Assigned at Not on file Legal Sex Female 11:18 AM STEEL CH[employer] Gender Identity Not on file Sexual Orientation Not on file Last Filed Vital Signs Vital Sign Reading Time Taken Comments Blood Pressure 112/53 02/23/2024 11:17 AM STEEL CH[employer] Pulse 90 07/14/2023 1:32 PM CDT Temperature 36.4 C (97.5 F) 06/24/2023 8:30 PM CDT Respiratory Rate 16 02/23/2024 11:17 AM STEEL CH[employer] Oxygen Saturation 97% 02/23/2024 11:17 AM STEEL CH[employer] Inhaled Oxygen Concentration - - Weight 101.6 kg (224 lb) 02/23/2024 11:17 AM [employer]EL CH[employer] Height 160 cm (5' 3 ) 07/14/2023 1:32 PM CDT Body Mass Index 39.68 07/14/2023 1:32 PM CDT Plan of Treatment Not on file Procedures Procedure Name Priority Date/Time Associated Diagnosis Comments SURGICAL PATHOLOGY Routine 04/25/2024 12 :00 AM STE[employer] Neoplasm of unspecified behavior of bone, soft tissue, and skin SCREENING MAMMOGRAM BILATERAL W GELY Schedule Routine, Read Routine (OP Routine) 04/06/2023 2:23 PM STEEL CH[employer] Screening mammogram, encounter for COLONOSCOPY REPORT 02/02/2017 from Last 3 Months or Most Recently Relevant to Health Maintenance Results * Surgical pathology (04/25/2024 12:00 AM STEEL CHIP[facility]) Tissue specimen (specimen) (Skin, shave biopsy) 04/25/2024 04/26/2024 4:37 AM STEEL CH[employer] - 04/30/2024 2:41 PM STEEL [facility] results best viewed via link to PDF [facility] [address] [place] [address], [address], [place] [address] [email or web address] Note to Patients: This report may contain a detailed description of human tissue sent by a health care provider to the laboratory for pathologic evaluation. The content of this report is essential for diagnosis and may provide important critical findings. This information may be unfamiliar to patients to review without a medical professional present. It is advised that the patient review this report in the presence of a health care provider who can answer questions and explain the details. FINAL REPORT Patient Information: PATIENT NAME: NURIA ISSA SEX: F : 1970 (Age: 53) Specimen Information: COLLECTED: 04/25/2024 RECEIVED: 04/26/2024 REPORTED: 04/30/2024 Submitting Physician Information: Ra Rosas MD PhD [address], [address], [place] [address] , [phone] DERMATOPATHOLOGY REPORT RESULTS DIAGNOSIS: A. SKIN, LEFT ANTERIOR THIGH, SHAVE BIOPSY: NEVUS LIPOMATOSUS SUPERFICIALIS B. SKIN, LEFT POSTERIOR THIGH, SHAVE BIOPSY: NEVUS LIPOMATOSUS SUPERFICIALIS exr/lac By this signature, I attest that the above diagnosis is based upon my personal examination of the slides(and/or other material indicated in the diagnosis). Kristina Vega M.D. Report Electronically Reviewed and Signed Out By Kristina Vega M.D. 04/30/2024 14:41:35 CLINICAL INFORMATION A-B. R/O NF VS. SOFT FIBROMA VS. NLS SPECIMEN DATA MICROSCOPIC DESCRIPTION: A-B. The connective tissue core of this polyp is composed of collagen bundles admixed with mature adipose tissue. There is a papillated epidermis. (D21.9) GROSS DESCRIPTION: A. Received in a formalin-containing bottle is a superficial fragment of pale jones, wrinkled and dome-shaped skin measuring 1.2 by 0.8 by 0.8 cm. The surgical margin is inked blue. The specimen is sectioned into 3 pieces and submitted entirely in a single cassette. Due to shrinkage, measurements may be different than those at time of procedure. Due to the nature of the specimen, extended processing is required. B. Received in a formalin-containing bottle is a superficial fragment of pale jones, wrinkled and dome-shaped skin measuring 1.4 by 1.0 by 0.7 cm. The surgical margin is inked blue. The specimen is sectioned into 4 pieces and submitted entirely in a single cassette. Due to shrinkage, measurements may be different than those at time of procedure. Due to the nature of the specimen, extended processing is required. exr/dxv Clerical Data A; 75177 B; 49839 The characteristics of special, immunohistochemical, and immunofluorescence stains and in-situ hybridization tests performed by the [facility] were deemed acceptable in ongoing compliance quality performance analyst measures and in compliance with regulations drawn from the Clinical Laboratory Improvement Act cr1644 (CLIA '88). Control reactions for all stains performed were deemed adequate and appropriate by a pathologist prior to evaluation of patient tissue. Some diagnoses were rendered with the assistance of laboratory-developed tests utilizing analyte-specific reagents; the performance characteristic of these tests were determined by [facility] and are not cleared or approved by the [place] Food an Drug administration. Laboratory developed test may only be performed in a facility that is certified by the [facility] as a high-complexity laboratory under CLIA '88. These tests are used for clinical purposes and are not investigational. Ra Rosas MD PhD LAB PATHOLOGY ORDERABLES Final Result [facility] [address] [place], [place] [id number] * Screening Mammogram Bilateral W [facility] (04/06/2023 2:23 PM STEEL CHIPPER) Anatomical Region Laterality Modality Breast Bilateral Mammography 04/08/2023 1:36 PM STEEL CH[employer]PER Impressions 04/08/2023 1:36 PM STEEL CH[employer]PER There is no mammographic evidence of malignancy. A 1 year screening mammogram is recommended. BI-RADS: 1 - Negative. The patient has been or will be contacted. The patient will be entered into a reminder system with a target due date of 1 year for her next mammogram. Electronically signed by: Susan Santacruz 04/08/2023 1:36 PM STEEL CH[employer]PER EXAMINATION: SCREENING MAMMOGRAM BILATERAL W GELY ORDERING HEALTHCARE PROVIDER: SELF SCREENING MAMMOGRAM HISTORY: Routine screening mammography. COMPARISON: 01/18/2020, 10/27/2017, 09/03/2014 TECHNIQUE: CC and MLO views of the bilateral breasts were obtained with digital technique using breast tomosynthesis with C view. Computer aided detection was utilized. FINDINGS: DENSITY: There are scattered fibroglandular elements in the bilateral breasts. BREASTS: There are no suspicious masses, suspicious calcifications, or other suspicious findings in either breast. There has been no suspicious interval change. us Self Screening Mammogram IMG MAMMO PROCEDURES Fi nal Result * COLONOSCOPY REPORT (02/02/2017) Anatomical Region Laterality Modality Other us Provider Scanning GI PROCEDURE ORDERABLES Final Result from Last 3 Months or Most Recently Relevant to Health Maintenance Insurance [facility] Care Teams Transmitter Tester Relationship Specialty Start Date End Date Halie Winslow MD [address] [place] [address] PCP - General 04/25/20 Marcos He MD [address] [place] [address] [place] [id number] Consulting Physician Medical Oncology 05/05/20
--- OUTSIDE RECORDS SUMMARY | 2024-07-21 15:00 | XMS_ITS | Continuity of Care Document ---
Author Organization [facility] Address [address] [place] [address] Dr Mar [address] [place] [phone] Phone Care Team Providers Care Procedures Analyst Name Role Phone Ivon SANCHEZ, Alessandra Unavailable Unavailable Allergies, Adverse Reactions, Alerts Substance Reaction Status Criticality codeine Active No Information penicillin G Active No Information Medications Medication Instructions Dosage Effective Dates (start - stop) Status Comments ketorolac 0.5 % eye drops instill 1 drop in the operated eye QID until bottle is gone - Active prednisolone acetate 1 % eye drops,suspension Instill 1 drop in the operated eye QID x 1 week, TID x 1 week, BID x 1 week, Qday x 1 week then stop - Active PRILOSEC (unknown strength) take 2 capsule by oral route every day before a meal Not Available - Active IRON (unknown strength) Not Available - Active Calcium (unknown strength) Not Available - Active ProAir HFA 90 mcg/actuation aerosol inhaler inhale 2 puff by inhalation route every 4 - 6 hours as needed - Active Singulair 4 mg oral granules in packet - Active QVAR (unknown strength) inhale 2 puff by inhalation route 2 times every day Not Available - Active ibuprofen (unknown strength) Not Available - Active simvastatin 10 mg tablet take 1 tablet by oral route every day in the evening 10 MG - Active fluticasone 50 mcg/actuation nasal spray,suspension inhale 1 spray by intranasal route every day in each nostril 50 MCG - Active SYNTHROID (unknown strength) take 1 tablet by ORAL route every day Not Available - Active ofloxacin 0.3 % eye drops Instill 1 drop in the operated eye; beginning 1 day prior to surgery, 4 times a day for 1 week - No Longer Active Procedures Procedure Date Refraction Post-op Follow-up Visit Post-op Follow-up Visit Post-op Follow-up Visit Remove Cataract, Insert Lens IOLMaster-Professional No Charge Refraction Post-op Follow-up Visit Post-op Follow-up Visit Post-op Follow-up Visit Remove Cataract, Insert Lens IOLMaster-Professional IOLMaster-Technical No Charge Refraction IOLMaster-Technical No Charge GDX Retina No Charge Orbscan Office/outpatient Visit, Est No Charge Refraction Eye Exam & Treatment Eye Exam & Treatment Refraction Eye Exam & Treatment Eye Exam & Treatment Eye Exam & Treatment Eye Exam Established Pt Office/outpatient Visit, Est Advance Directives Directive Yes / No Effective Date File Name No Information Encounters Encounter Description Practice Location Reason(s) For Visit Diagnoses Date Provider Providers Copied on Encounter [facility], [address] [place] [address], [id number], tel:[phone] [place] Professional 1 mo PC IOL PO (chief complaint) Encntr for f/u exam aft trtmt for cond oth than malig neoplm 7201 7 Ivon Aparicio. [address] [place], [address], [place]. tel:[phone] Referring Provider: Alessandra Del Valle, [address] [place], [address]. tel:[phone] [facility], [address], [place], [place], [id number], [place] tel:[phone] SEC [place] Professional Post-Op (chief complaint) Encntr for f/u exam aft trtmt for cond oth than malig neoplm Oct-3 1- 7 Duron De. [address] [facility], [address], [place], [place], [id number], [place]. tel:[phone] Referring Provider: Alessandra Del Valle, [address] [place], [address]. tel:[phone] [facility], [address], [place], [place], [id number], [place] tel:[phone] SEC [place] Professional 1 day CE PO (chief complaint) No Information Dec- 7 Ivon Aparicio. [address] [place], [address], [place]. tel:[phone] Referring Provider: Alessandra Del Valle, [address] [place], [address]. tel:[phone] [facility], [id number] [place] [address] [address], [place], [place], [address], [place] [phone] [facility] No Information Dec- 7 Ivon Aparicio. [address] [place], [address], [place]. tel:[phone] Referring Provider: Alessandra Del Valle, [address] [place], [address]. tel:[phone] [facility], [address], [place], [place], [address], [place] [phone] [facility] No Information Dec- 6- 7 Ivon Aparicio. [address] [place], [address], [place]. tel:[phone] Referring Provider: Alessandra Del Valle, [address] [place], [address]. tel:[phone] [facility], [address], [place], [place], [id number], tel:[phone] [place] No Information Oct-0 6-201 7 Ivon Aparicio. [address] [place], [address], [place]. tel:[phone] [facility], [address], [place], [place], [address], [place] tel:[phone] [place] 3 week PO (chief complaint) No Information Oct-0 5- 7 Ivon Aparicio. [address] [place] [address], [address], [place]. tel:[phone] Referring Provider: Alessandra Del Valle, [address] [place] [address], [address]. tel:[phone] [facility], [address], [place], [place], [address], [place] tel:[phone] [place] Post-Op (chief complaint) No Information Sep-2 7 Stephanie Franks. [address] [facility], [address], [place], [place], [address], [place]. tel:[phone] Referring Provider: Alessandra Del Valle, [address] [place], [address]. tel:[phone] [facility], [address], [place], [place], [id number], [place] [phone] [place] 1 day CE PO (chief complaint) No Information Sep-1 3-201 7 Ivon Aparicio. [address] [place] [address], [address], [place]. tel:[phone] Referring Provider: Alessandra Del Valle, [address] [place], [address]. tel:[phone] [facility], [address] [place] [address] [address], [place], [place], [address], [place] tel:[phone] [facility] No Information 7 Ivon Aparicio. [address] [place], [address], [place]. tel:[phone] Referring Provider: Alessandra Del Valle, [address] [place], [address]. tel:[phone] [facility], [address] [place] [address] [address], [place], [place], [id number], [place] tel:[phone] [facility] No Information Ivon Aparicio. [address] [place], [address], [place]. tel:[phone] Referring Provider: Alessandra Del Valle, [address] [place], [address]. tel:[phone] [facility], [address] [place] [address] [address], [place], [place], [id number], [place] tel:[phone] [place] repeat IOL (chief complaint) No Information 7 Ivon Aparicio. [address] [place], [address], [place]. tel:[phone] Referring Provider: Alessandra Del Valle, [address] [place], [address]. tel:[phone] [place]pat ient [place], [facility] [address] [place] [address] [address], [place], [place], [id number], [place] tel:[phone] [place] Cataract evaluation (chief complaint) No Information 7 Ivon Aparicio. [address] [place], [address], [place]. tel:[phone] Referring Provider: Juan Hernández, [address], [place], [address] . tel:[phone] [facility], [address], [place], [place], [address], tel:[phone] [place] Professional Complete Exam (chief complaint) No Information 0-201 7 Wanradha Martinez. [address], [place], [place], [address], . tel:[phone] Referring Provider: Juan Julesradha Hernández, [address], [place], [address] . tel:[phone] [facility], [address], [place], [place], [address], tel:[phone] [place] Professional Blurry vision (chief complaint) No Information 3-201 5 Wanradha Martinez. [address], [place], [id number], . tel:[phone] Referring Provider: Juan Hernández, [address], [place], [address] . tel:[phone] [facility], [address], [place], [place], [address], tel:[phone] [place] Professional No Information 3-201 4 Wanradha Martinez. [address], [place], [address], . tel:[phone] Referring Provider: Juan Haineskarlie Hernández, [address], [place], [address] . tel:[phone] [facility], [address], [place], [place], [address], [place] tel:[phone] SEC [place] Professional No Information 4 Rehana Rain. [address], [place], [place], [facility], . tel:[phone] [facility], [address], [place], [place], [address], [place] tel:[phone] [place] No Information Nov-2 2 Wanradha Martinez. [address] [facility], [address] [place], [address], [place]. tel:[phone] Referring Provider: Juan Hrenández, [address] [facility] [address], [place], [address] . tel:[phone] [facility], [address], [place], [place], [address], [place] tel:[phone] SEC D[place]ell DIEGO Professional No Information 2 Rehana Rain. [address], [place], [place], [facility], [place]. tel:[phone] [facility], [address], [place], [place], [address], [place] tel:[phone] [place]AND[place] Professional No Information Oct-04 08- 1 Argeila Martinez. [address] [facility], [address] [place], [address], [place]. tel:[phone] [facility], [address], [place], [place], [address], [place] tel:[phone] [place] No Information May-0 3-200 9 Wankum Juan. [address] [facility], [address] [place], [address], [place]. tel:[phone] Office/outpat ient Visit, Est [facility], [address], [place], [place], [address], [place] tel:[phone] SEC [place] DIE[place] Professional No Information 7 Argelia Martinez. [address] [facility], [address], [place], [place], [address], [place]. tel:[phone] Family History Family Member Type Diagnosis Age At Onset Close relative Problem (finding) hypertension Payers Payer name Insurance type Covered democrat ID Authoriza tion(s) No Information Social History Type Description Quantity Date Captured Comments Alcohol Use Details No Caffeine Use Details 5 cups per day Tobacco Use Status No Information Smoking Status Never smoker Non-Smoking Tobacco Use Details : No Details Available : No Details Available Sex Female Chief Complaint And Reason For Visit From encounter dated '01/31/2017 10:45'. 1 mo PC IOL PO (chief complaint). Description: The 46 year old female presents for 1 mo PC IOL PO in the left eye. Pt states OS has been itching for the past 2 days, pt has not used any gtts to help.Pt stopped using Sx gtts last tuesday. Pt states vision is good. Reason For Referral Reason For Referral No Information History Of Present Illness Encounter Date Complaint History Of Prese nt Illness 1 mo PC IOL PO The 46 year old female presents for 1 mo PC IOL PO in the left eye. Pt states OS has been itching for the past 2 days, pt has not used any gtts to help. Pt stopped using Sx gtts last tuesday. Pt states vision is good. Post-Op The 46 year old female presents for 1 week post op CE OS. Patient is pseudo ou. Patient is using Ketorolac tid OS. Patient c/o OS kind of hurts to look up. 1 day CE PO The 46 year old female presents for 1 day CE PO in the left eye. Pt using Ocuflox, Pred and Ketorolac as directed. PO instructions were given, explained and understood by pt. Pt reports OS is a little sore, but not too bad. 3 week PO The 45 year old female presents for 3 week PO in the right eye. Hx PCIOL OD, Cat OS, Alternating Exotropia, Dry eye, Ptosis. Pt states her vision is doing very good, she is very happy with her results. PT states her near vision is not doing very good. Pt using Pred QD OD. Pt is scheduled to have her second eye done Tuesday. Pt states OS is till very blurry, she has trouble reading small print, doing close work, and performing daily task. Pt states she is also bothered by glare. Post-Op The 45 year old female presents for a 1 week post op CE OD. Patient is using Pred tid OD and ran out of Ketoraloc. Patient states underneath OD is a little sore. 1 day CE PO The 45 year old female presents for 1 day CE PO in the right eye. Pt is using Pred, Diclo, and Ketorolac as directed. PO instructions were given, explained, and understood by pt. Pt reports OD is mildly itchy. repeat IOL The 45 year old female presents for repeat IOL master with patching each eye. Cataract evaluation The 45 year old female presents for Cataract evaluation OU, patient states her eyes itch a lot, patient complains of decreased v/a up close, near, and c glare. Patient uses Allergy gtts PRN and Clear eyes PRN OU.Hx of cataracts OU, ALT XT OU, and Ptosis OU Complete Exam The 45 year old female presents for Complete Exam in the right eye and left eye. Patient states OD itches. Patient states she has to hold things too close to read. Blurry vision The 43 year old female presents for complete exam. Patient c/o blurry v/a on and off OU. Patient c/o blurry v/a when reading small print OU. Patient says glares bother her when looking at bright lights OU. Patient denies any pain or discomfort. Patient not taking any gtts at this time. Functional Status Date Functional Assessmen t No Information Instructions Date Instruction Additional Infor chela Impression/Plan - PO M 1 s/p CE/PCIOL OS. Doing well. Discussed trace PC haze with Crystal and also her mother over the phone. BCVA 20/25 today, recommend monitoring for now. Continue post op drops as instructed. Rx for glasses given. RTC 6 mths for CEE. Follow up - Return i n 6 months with Alessandra Del Valle M.D. for Complete Exam. as scheduled Related to Encnt r for f/u exam aft trtmt for cond oth than malig neoplm Impression/Plan - On e week PO s/p Phaco with IOL OS:- IOL in good position; healing well- Patient advised they no longer need to wear the shield over the eye at bedtime- Medication instillation and post op instructions reviewed- Recommend OTC readers +2.25 - Patient will return as scheduled or sooner with problems Related to Encntr for f/u exam aft trtmt for cond oth than malig neoplm Follow up - as scheduled Related to Encntr for f/u exam aft trtmt for cond oth than malig neoplm Follow up - as scheduled Impression/Plan - PO D 1 s/p CE/PCIOL OS- Doing well- IOP well controlled- Post op med instructions reviewed with pt, and post op instructions discussed- Discussed warning signs and symptoms and need for immediate exam should these occur- Pt understands shield use, return to clinic for post op exam as scheduled- Called patients mother at patients request, got voicemail, asked mother to call back. Impression/Plan - PO M 1 s/p CE/PCIOL OD. Doing well, IOP well controlled. Continue post op drops as instructed. Recommend artificial tears prn for ocular dryness, sample given. Proceed with CE OS as scheduled. Follow up - Proceed with CE OS as scheduled Encntr for f/u exam aft trtmt for cond oth than malig neoplm - Medication use reviewed Related to Encntr for f/u exam aft trtmt for cond oth than malig neoplm Encntr for f/u exam aft trtmt for cond oth than malig neoplm - Post op instructions reviewed and understood by patient Related to Encntr for f/u exam aft trtmt for cond oth than malig neoplm Impression/Plan - Pa tient instructed to continued Pred and Ketorolac tid OD.Return 2 weeks. Related to Encntr for f/u exam aft trtmt for cond oth than malig neoplm Encntr for f/u exam aft trtmt for cond oth than malig neoplm - Post op instructions reviewed and understood by patient Related to Encntr for f/u exam aft trtmt for cond oth than malig neoplm Impression/Plan - PO D 1 s/p CE/PCIOL OD. Doing well. IOP well controlled. Post op med instructions reviewed with pt, and post op instructions discussed. Confirmed that pt is using ofloxacin, ketorolac, pred QID OD. Discussed warning signs and symptoms and need for immediate exam should these occur. Called patient's mother, per pt's request. Mother's name is Abby and her contact number is [phone]. Pt understands shield use, return to clinic for post op exam as scheduled. Related to Encntr for f/u exam aft trtmt for cond oth than malig neoplm Impression/Plan - Ca taract presence and progression discussed. Cataracts account for the patients complaints. Discussed all risks, benefits, procedures and recovery. Vision will not significantly improve with a change in glasses and we recommend not changing. The patient understands this is an elective procedure and may proceed when desired. The patients questions were answered and demonstrates understanding of our discussion. Patient desires to have surgery, recommend phacoemulsification with intraocular lens. Discussed astigmatism with pt.- Visually significant OU- Will plan on OD this is more consistantly the XT eye, followed by OS- Dilates 8 mm- No trauma or prior surgery - No ASA/Plavix/Coumadin- No Flomax - History of anxiety induced asthma, DiGeorge syndrome, HTN- Able to lay flat for 60 minutes with positioning for back pain- Special considerations for cataract surgery: Retrobulbar Block pt has difficulty with things near her eyes. Pt is slightly delayed.- Special considerations for lens: Standard monofocal IOL OU.- Pt requests that we call her Mother and let her know about the procedure process. Repeat IOL master obtained today, which was consistent with previous IOL master. Will proceed with surgery. Will have surgery schedulers contact patient to schedule CE. Requested that surgery schedulers contact both her and her mother regarding any surgery related information. Mother's name is Abby and her contact number is [phone] Related to Combined forms of age-related cataract, bilateral Combined forms of ag e-related cataract, bilateral - Educational material provided Related to Combined forms of age-related cataract, bilateral Impression/Plan - Ca taract presence and progression discussed. Cataracts account for the patients complaints. Discussed all risks, benefits, procedures and recovery. Vision will not significantly improve with a change in glasses and we recommend not changing. The patient understands this is an elective procedure and may proceed when desired. The patients questions were answered and demonstrates understanding of our discussion. Patient desires to have surgery, recommend phacoemulsification with intraocular lens. Discussed astigmatism with pt.- Visually significant OU- Will plan on OD this is more consistantly the XT eye, followed by OS- Dilates 8 mm- No trauma or prior surgery - No ASA/Plavix/Coumadin- No Flomax concern for floppy iris intraoperatively. - History of anxiety induced asthma, DiGeorge syndrome, HTN- Able to lay flat for 60 minutes with positioning for back pain- Special considerations for cataract surgery: Retrobulbar Block pt has difficulty with things near her eyes. Pt is slightly delayed.- Special considerations for lens: Standard monofocal IOL OU.- Pt requests that we call her Mother and let her know about the procedure process. RTC for repeat IOL Master with patching of each eye, will have surgery schedulers contact her at that time. Request that surgery schedulers contact both her and her mother regarding any surgery related information. Mother's name is Abby and her contact number is [phone] Related to Combined forms of age-related cataract, bilateral Follow up - Schedule cataract evaluation Impression/Plan - Di scussed diagnosis in detail with patient. No signs of Glaucoma or AMD OU. Pt aware cataracts are cause of any vision and glare problems. Pt would like to proceed with CE. Schedule cataract evaluation. 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 pt also understands at this time vision does not qualify to have CE with insurance coverage. instructed to return sooner if vision worsens. New rx for glasses given, will improve near. Recommend Zaditor for allergy relief. Return in 1 year for complete exam with cataract check or sooner with any problems. Related to Post subcapsular polar cataracts - Return in 1 year anthony Stout M.D. for Complete Exam Related to Post subcapsular polar cataracts Post subcapsular najma ar cataracts - Educational material given Related to Post subcapsular polar cataracts - 1yr Related to Poste rior subcapsular cataract mild psc os>od - obs ervationadjust glasses-frames bent Related to Posterior subcapsular cataract alt XT Related to Alter nating exotropia allergic conj - Zaditor helped i n past Related to Allergic conjunctivitis early sty - HMP bidt /dex qid os for 7 days Assessments Type Assessment Date assessment Encntr for f/u exam aft trtmt fo r cond oth jareth lombardo Patient Care Teams Name Effective Dates (start - stop) Status Members No Information
--- OUTSIDE RECORDS SUMMARY | 2024-07-21 15:00 | XMS_ITS | Clinical Summary ---
Author Organization [facility] Address [address] [place] [address] Care Team Providers Care Credit Operations Specialist Name Role Phone Halie Winslow MD Primary Care Provider [phone] Marcos He MD Unavailable [phone] Allergies Active Allergy Reactions Criticality Noted Date Comments Codeine Nausea only,Nausea And Vomiting,Vomiting Low 09/23/2019 Other reaction(s): Nausea and/or Vomiting Penicillins Nausea only,Nausea And Vomiting Medium 09/23/2019 Other reaction(s): Nausea and/or Vomiting Jhiqoru-Veo-Uzz Reductase Inhibitors Other (See comments) Low 03/02/2024 Intolerance Medications levothyroxine (SYNTHROID) 112 mcg tablet Take 1 tablet (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 Start Leqvio. Assessment & Plan (07/14/2023 1:56 PM CDT): Continue simvastatin. 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 Advised regarding sodium [...] initial encounter 05/28/2020 Iron deficiency anemia 05/02/2020 Encounters Date Type Department Care Team Description 07/02/2024 11:00 AM CDT Office Visit [place] [facility] [id number] [place] [address] Mixed hyperlipidemia (Primary Dx) 05/11/2024 Results Follow-Up [facility] [address] [place] [address] Elyssa Cherry CMA 04/26/2024 Orders Only [facility] [address] [place] [address] Ra Rosas MD PhD Neoplasm of unspecified behavior of bone, soft tissue, and skin 04/25/2024 2:45 PM 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 Office Visit [facility] [address] [place] [address] [address] [place] [address] Ra Rosas MD PhD Neoplasm of unspecified behavior of bone, soft tissue, and skin (Primary Dx); Rosacea; Lichen simplex chronicus; Acne rosacea 04/25/2024 Telephone [facility] [address] [place] [address] [address] [place] [address] Ra Rosas MD PhD Scheduling Appointments from Last 3 Months Immunizations Immunization Administration Dates Next Due Influenza, Quadrivalent, Spl it, Intramuscular 12/03/2019,01/18/2019,12/05/2017,01/11,01/14/2016 Influenza, Quadrivalent, Spl it, Preservative Free, Intramuscular 12/03/2019,12/04/2017 Influenza, Trivalent, IM (MDV) 12/16/2012,2011 Influenza, Unspecified 04/04/2018 Moderna SARS-CoV-2 Monovalen t Vaccination (12+ YRS) 06/27/2020,05/30/2020 Pneumococcal Polysaccharide PPV23 06/28/2018 Surgical History Surgery Date Site/Laterality Comments TUBAL LIGATION Bilateral tubal ligation HERNIA REPAIR CATARACT EXTRACTION, BILATERAL COLONOSCOPY Medical History Medical History Date Comments Asthma Hypercholesterolemia Anxiety Hypertension Thyroid disease Gastric reflux Rheumatoid arthritis (HCC) Family History Medical History Relation Name Comments Coronary artery disease Father Dayanara nary artery disease; Diabetes Father Diabetes mellit us; Hyperlipidemia Father Hyperlipidemi a; Hypertension Father Hypertension; Other Father Alive and well; Hyperlipidemia Mother Hyperlipidemi a; Hypertension Mother Hypertension; Other Mother Alive and well; Breast cancer Mother's Sister 1 Breast cancer Mother's Sister 2 Alcohol abuse Other Arthritis Other Cancer Other Heart disease Other Stroke Other Relation Name Status Comments Father Alive Mother Alive Mother's Sister 1 Mother's Sister 2 Other Social History Tobacco Use Types Packs/Day Years [...] on file Legal Sex Female 11:18 AM 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 Gender Identity Not on file Sexual Orientation Not on file Obstetrics History Para Term AB IAB SAB Ectopic Multiple Livin g Live Births 4 3 3 Date Outcome GA Total Labor Labor/2nd/3rd Weight Sex Type Anes PTL Shirley A1 A5 Name Clin Term Term Term Last Filed Vital Signs Vital Sign Reading Time Taken Comments Blood Pressure 112/53 02/23/2024 11:17 AM 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 Pulse 90 07/14/2023 1:32 PM CDT Temperature 36.4 C (97.5 F) 06/24/2023 8:30 PM CDT Respiratory Rate 16 02/23/2024 11:17 AM 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 Oxygen Saturation 97% 02/23/2024 11:17 AM 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 Inhaled Oxygen Concentration - - Weight 101.6 kg (224 lb) 02/23/2024 11:17 AM 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 Height 160 cm (5' 3 ) 07/14/2023 1:32 PM CDT Body Mass Index 39.68 07/14/2023 1:32 PM CDT Plan of Treatment Health Maintenance Due Date Last Done Comments Cervical Cancer Screening 1970 Depression Screening 1970 Hepatitis C Screening 1970 Hepatitis B Screening 1988 Regular Well Visit/Exam 18-64 1988 Pneumococcal vaccine <65 (2 of 2 - PCV) 06/29/2019 06/28/2018 Zoster Vaccine (1 of 2) 2020 Covid-19 Vaccine (4 - 2023-2 5 season) 2023 03/19/2021, 06/27/2020, 05/30/2020 Breast Cancer Screening-Mammogram 04/06/2024 04/06/2023, 04/06/2023, 01/18/2020, Additional history exists Colon Cancer Screening-Colonoscopy 02/02/20272016 DTaP/Tdap/Td Vaccine (3 - Td or Tdap) 05/28/2034 05/28/2024, 02/18/2014 Influenza Vaccine Completed 12/19/2023, , 01/18/2022, Additional history exists Procedures Procedure Name Priority Date/Time Associated Diagnosis Comments SURGICAL PATHOLOGY Routine 04/25/2024 12 :00 AM 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 Neoplasm of unspecified behavior of bone, soft tissue, and skin SCREENING MAMMOGRAM BILATERAL W HUDSON Schedule Routine, Read Routine (OP Routine) 04/06/2023 2:23 PM 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 Screening mammogram, encounter for COLONOSCOPY REPORT 02/02/2017 from Last 3 Months or Most Recently Relevant to Health Maintenance Results * Surgical pathology (04/25/2024 12:00 AM 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 FINAL REPORT Patient Information: PATIENT NAME: OPHELIA ISSA SEX: F : 1970 (Age: 53) Specimen Information: COLLECTED: 04/25/2024 RECEIVED: 04/26/2024 REPORTED: 04/30/2024 Submitting Physician Information: Ra Rosas MD PhD [address], [address], [place] [address] , [phone] DERMATOPATHOLOGY REPORT RESULTS DIAGNOSIS: A. SKIN, LEFT [...] processing is required. exr/dxv Clerical Data A; [id number] B; [id number] The characteristics of special, immunohistochemical, and immunofluorescence stains and in-situ hybridization tests performed by the [facility] were deemed acceptable in ongoing quality director measures and in compliance with regulations drawn from the Clinical Laboratory Improvement Act wq1369 (CLIA '88). Control reactions for all stains performed were deemed adequate and appropriate by a pathologist prior to evaluation of patient tissue. Some diagnoses were rendered with the assistance of laboratory-developed tests utilizing analyte-specific reagents; the performance characteristic of these tests were determined by [facility] and are not cleared or approved by the [place] Food an Drug administration. Laboratory developed test may only be performed in a facility that is certified by the [facility] as a high-complexity laboratory under CLIA '88. These tests are used for clinical purposes and are not investigational. Ra Rosas MD PhD LAB PATHOLOGY ORDERABLES Final Result [facility] [address] [place] [id number] * Screening Mammogram Bilateral W [place] (04/06/2023 2:23 PM 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) Anatomical Region Laterality Modality Breast Bilateral Mammography 04/08/2023 1:36 PM 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 Impressions 04/08/2023 1:36 PM 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 There is no mammographic evidence of malignancy. A 1 year screening mammogram is recommended. BI-RADS: 1 - Negative. The patient has been or will be contacted. The patient will be entered into a reminder system with a target due date of 1 year for her next mammogram. Electronically signed by: Debbie Parish M.D. Narrative 04/08/2023 1:36 PM 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 EXAMINATION: SCREENING MAMMOGRAM BILATERAL W HUDSON ORDERING HEALTHCARE PROVIDER: SELF SCREENING MAMMOGRAM HISTORY: [...] There has been no suspicious interval change. Self Screening Mammogram IMG MAMMO PROCEDURES Fi nal Result * COLONOSCOPY REPORT (02/02/2017) Anatomical Region Laterality Modality Other Provider Scanning GI PROCEDURE ORDERABLES Final Result from Last 3 Months or Most Recently Relevant to Health Maintenance Insurance [facility] Care Teams Credit Operations Specialist Relationship Specialty Start Date End Date Halie Winslow MD [address] [place] [address] PCP - General 04/25/20 Marcos He MD [address] [address] [place] [id number] Consulting Physician Medical Oncology 05/05/20
--- OUTSIDE RECORDS SUMMARY | 2024-07-21 15:01 | XMS_ITS | Data Portability ---
Author Organization [facility] Address [address] [place] [address] Care Team Providers Care Assistant Track And Field Coach Name Role Phone KATI SALCIDO Primary Care Provider DEBBY HILL Category Analyst Unavailable Assessment No assessment recorded. Plan of Treatment Reminders Order Date Submit Date Provider Last Modified By Organization Details Last Modified Time Details Appointments ANY 15 2024 10:30A M ALEXANDRA REDDY Not available Not available Not available Lab urinaly sis, dipstic k 2024 025 [email or web address] In-Office Order, Internal Use Only DO Not Attach Compendium DO Not Attach Compendium, Do Not Delete/merge, [id number] 05/28/2024 14:42:35 culture , urine 2024 025 JONO [facility], [address] [facility], [facility], [place], [address], 06/01/2024 03:08:17 CBC 2023 024 [email or web address] [facility], [address] [facility], [facility], [place], [address], 05/08/2024 08:09:11 lipid panel, serum 2023 024 [email or web address] [facility], [address] [facility], [facility], [place], [address], 05/08/2024 08:09:11 CMP, serum or plasma 2023 024 jschulterma [facility], [address] [facility], [facility], [place], [address], 05/08/2024 08:09:11 TSH, ultra-s ensitiv e, serum 2023 024 jschulterma [facility], [address] [facility], [facility], [place], [address], 05/08/2024 08:09:11 cytolog y report, thin prep, smear or scrapin g, cervica l or vaginal 2023 024 JONO [facility], [address] [facility], [facility], [place], [address], 11/16/2023 03:36:52 Referral gastroe nterolo gist referra l 2024 025 [email or web address] Dino Spicer, 4 [facility] , [facility] [address], [place], [address], 07/10/2024 14:09:41 pulmono logist referra l 2024 025 eric Talley MD, 1 [facility], Third Floor, [place], [address], 07/20/2024 12:17:09 rheumat ologist referra l 2024 025 [email or web address] Suzanna Dinh MD, One [facility] , [place], [address], 07/10/2024 14:09:41 gynecol ogist referra l - Erosion of medial aspect of left labia minora. Patient reports this has not healed in past year. 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 2023 024 william Oneal, 4 [facility] , [address], [place], [address], 02/21/2024 17:12:53 Procedures None recorde d. Surgeries None recorde d. Imaging MAMMO, screeni ng, bilater al 2024 025 dtMan [facility], [address] [facility] , [place], [address], 06/26/2024 17:03:03 Medication Orders flutica sone propion ate 50 mcg/act uation nasal spray,s uspensi on 2024 025 [facility], [address] [place] [address], [address], 05/28/2024 14:45:44 Saline Nasal 0.65 % spray aerosol 2024 025 [facility], [address] [place] [address], [address], 05/28/2024 14:45:45 buspiro ne 7.5 mg tablet 2024 025 [facility], [address] [place] [address], [place], [address], 07/03/2024 10:44:01 Qvar RediHal er 40 mcg/act uation HFA breath activat ed aerosol 2024 025 [facility], [address] [place] [address], [address], 05/28/2024 14:49:11 omepraz ole 20 mg capsule ,delaye d release 2024 025 [facility], [address] [place] [address], [address], 05/28/2024 14:45:44 levothy roxine 112 mcg tablet 2024 025 [facility], [address] [place] [address], [address], 05/28/2024 14:49:10 dicyclo mine 10 mg capsule 2023 024 [facility], [address] [place] [address] [place], [address], 12/19/2023 15:39:42 buspiro ne 7.5 mg tablet 2023 024 [facility], [address] [place] [address], [place], [address], 12/19/2023 15:39:43 Patient TargetsNo targets recorded. Patient Instructions Encounter Date Encounter Id Patient Instructions Last Modified By Organization Details Last Modified Time 12/19/2023 [id number] f/u in 4 month [email or web address] Not available 12/19/2023 15:38:36 05/28/2024 [id number] Tdap (tetanus, diphtheria, pertussis) vaccine: what you need to know [email or web address] Not available 05/28/2024 14:42:34 A healthy lifest yle: care instructions [email or web address] Not available 05/28/2024 14:42:34 gastroesophageal reflux disease (GERD): care instructions [email or web address] Not available 05/28/2024 14:45:31 Plan of care has been discussed with patient including expected therapeutic benefits and potential side effects of prescribed medication and treatments. Patient verbalizes understanding and is in agreement with the plan of care. Patient was instructed to keep all scheduled appointments and contact the clinic for any additional problems. Health Maintenance: - CRC screening (45-75): colonoscopy 2022, repeat in 5 years - Osteoporosis screening: Due at 65. - Lipid screening (>45 unless additional risk factors): 05/09/24 - HIV : negative 2017 - HepC: negative 2017 -Eye exam: unknown -Dental Exam: unknown - Immunizations: - Influenza: 12/19/23 - Prevnar 20: Due at 65. - Tdap/Td ([id number]): 02/18/14 - Zoster (>60):Due at 60. - COVID-19: 03/19/21, 06/27/20, 05/30/20 -Labs ordered this visit: n/a Females: Pap smear: 11/11/23 Mammogram: 04/06/23, ordered DEXA: n/a [email or web address] Not available 06/22/2024 10:02:36 Reason for Referral Professional Services Specialist Referral for Le meng of vulva Erosion of medial aspect of left labia minora. Patient reports this has not healed in past year. 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 Referring Physician: Debby Hill [facility], Encounter Date: 11/11/2023 Stone Sandblaster Referral for Irritable bowel syndrome Referring Physician: Lorena Dempsey [facility], Encounter Date: 05/28/2024 Form Grader Referral for Rheumatoid arthritis Referring Physician: Lorena Dempsey [facility], Encounter Date: 05/28/2024 Arch Support Maker Referral for A sthma Referring Physician: Lorena Dempsey [facility], Encounter Date: 05/28/2024 Results Created Date Observation Date Name Description Value Unit Range Abnormal Flag Note LastModifiedBy Organization Detail LastModifiedTime 05/19/1905/19/2023 LIPID PANEL cholesterol, total 194 mg/dL 100-19 9 Not Available [facility] [address] [place] [address], [address], 05/19/2023 20:09:46 05/19/19 24 05/19/2023 LIPID PANEL triglyceride s 179 mg/dL 0-149 above high normal Not Available [facility] [address] [place], [address], 05/19/2023 20:09:46 05/19/19 24 05/19/2023 LIPID PANEL HDL cholesterol 44 mg/dL 40-999 Not Available [facility] [address] [place], [address], 05/19/2023 20:09:46 05/19/19 24 05/19/2023 LIPID PANEL VLDL cholesterol amy 36 mg/dL 5-40 Not Available [facility] [address] [place], [address], 05/19/2023 20:09:46 05/19/19 24 05/19/2023 LIPID PANEL LDL chol calc ([facility]) 139 mg/dL 0-99 above high normal Not Available [facility] [address] [place] [address], [address], 05/19/2023 20:09:46 05/19/19 24 05/19/2023 COMP. METAB OLIC PANEL (14) glucose 76 mg/dL 70-99 Not Available [facility] [address] [place] [address], [address], 05/19/2023 20:09:46 05/19/19 24 05/19/2023 COMP. METAB OLIC PANEL (14) BUN 16 mg/dL 6-24 Not Available [facility] [address] [place] [address], [address], 05/19/2023 20:09:46 05/19/19 24 05/19/2023 COMP. METAB OLIC PANEL (14) creatinine 0.85 mg/dL 0.76-1 .27 Not Available [facility] [address] [place] [address], [address], 05/19/2023 20:09:46 05/19/19 24 05/19/2023 COMP. METAB OLIC PANEL (14) eGFR 82 >=60 Units for eGFR value s are mL/mi n/1.7 3 The eGFR Calcu latio n has not been valid ated for patie nts under the age of 18. If test resul ts are displ ayed for a patie nt under the age of 18, disre debo that value . Not Available [facility] [address] [place] [address], [address], 05/19/2023 20:09:46 05/19/19 24 05/19/2023 COMP. METAB OLIC PANEL (14) BUN/creatini ne ratio 18 9-23 Not Available [facility] [address] [place] [address], [address], 05/19/2023 20:09:46 05/19/19 24 05/19/2023 COMP. METAB OLIC PANEL (14) sodium 143 mmol/ L 134-14 4 Not Available [facility] [address] [place] [address], [address], 05/19/2023 20:09:46 05/19/19 24 05/19/2023 COMP. METAB OLIC PANEL (14) potassium 4.2 mmol/ L 3.5-5. 2 Not Available [facility] [address] [place], [address], 05/19/2023 20:09:46 05/19/19 24 05/19/2023 COMP. METAB OLIC PANEL (14) chloride 105 mmol/ L 96-106 Not Available [facility] [address] [place], [address], 05/19/2023 20:09:46 05/19/19 24 05/19/2023 COMP. METAB OLIC PANEL (14) carbon dioxide, total 26 mmol/ L 20-29 Not Available [facility] [address] [place], [address], 05/19/2023 20:09:46 05/19/19 24 05/19/2023 COMP. METAB OLIC PANEL (14) calcium 9.3 mg/dL 8.7-10 .2 Not Available [facility] [address] [place], [address], 05/19/2023 20:09:46 05/19/19 24 05/19/2023 COMP. METAB OLIC PANEL (14) protein, total 7.0 g/dL 6.0-8. 5 Not Available [facility] [address] [place], [address], 05/19/2023 20:09:46 05/19/19 24 05/19/2023 COMP. METAB OLIC PANEL (14) albumin 4.4 g/dL 3.8-4. 9 Not Available [facility] [address] [place], [address], 05/19/2023 20:09:46 05/19/19 24 05/19/2023 COMP. METAB OLIC PANEL (14) globulin, total 2.6 g/dL 1.5-4. 5 Not Available [facility] [address] [place], [address], 05/19/2023 20:09:46 05/19/19 24 05/19/2023 COMP. METAB OLIC PANEL (14) A/G ratio 2.0 1.2-2. 2 Not Available [facility] [address] [place], [address], 05/19/2023 20:09:46 05/19/19 24 05/19/2023 COMP. METAB OLIC PANEL (14) bilirubin, total 0.4 mg/dL 0.0-1. 2 Not Available [facility] [address] [place], [address], 05/19/2023 20:09:46 05/19/19 24 05/19/2023 COMP. METAB OLIC PANEL (14) alkaline phosphatase 94 IU/L 44-121 Not Available [facility] [address] [place], [address], 05/19/2023 20:09:46 05/19/19 24 05/19/2023 COMP. METAB OLIC PANEL (14) AST (SGOT) 16 IU/L 0-40 Not Available [facility] [address] [place] [address], [address], 05/19/2023 20:09:46 05/19/19 24 05/19/2023 COMP. METAB OLIC PANEL (14) ALT (SGPT) 16 IU/L 0-32 Not Available [facility] [address] [place] [address], [address], 05/19/2023 20:09:46 05/19/19 24 05/19/2023 CBC WITH DIFFE RENTI AL/PL ATELE T WBC 7.1 x10e3 /uL 3.4-10 .8 Not Available [facility] [address] [place] [address], [address], 05/19/2023 20:09:47 05/19/19 24 05/19/2023 CBC WITH DIFFE RENTI AL/PL ATELE T RBC 4.18 x10e6 /uL 3.77-5 .28 Not Available [facility] [address] [place], [address], 05/19/2023 20:09:47 05/19/19 24 05/19/2023 CBC WITH DIFFE RENTI AL/PL ATELE T hemoglobin 12.7 g/dL 11.1-1 5.9 Not Available [facility] [address] [place], [address], 05/19/2023 20:09:47 05/19/19 24 05/19/2023 CBC WITH DIFFE RENTI AL/PL ATELE T hematocrit 38.6 % 34.0-4 6.6 Not Available [facility] [address] [place], [address], 05/19/2023 20:09:47 05/19/19 24 05/19/2023 CBC WITH DIFFE RENTI AL/PL ATELE T MCV 92 fL 79-97 Not Available [facility] [address] [place], [address], 05/19/2023 20:09:47 05/19/19 24 05/19/2023 CBC WITH DIFFE RENTI AL/PL ATELE T MCH 30.4 pg 26.6-3 3.0 Not Available [facility] [address] [place], [address], 05/19/2023 20:09:47 05/19/19 24 05/19/2023 CBC WITH DIFFE RENTI AL/PL ATELE T MCHC 32.9 g/dL 31.5-3 5.7 Not Available [facility] [address] [place], [address], 05/19/2023 20:09:47 05/19/19 24 05/19/2023 CBC WITH DIFFE RENTI AL/PL ATELE T RDW 13.3 % 11.5-1 4.5 Not Available [facility] [address] [place], [address], 05/19/2023 20:09:47 05/19/19 24 05/19/2023 CBC WITH DIFFE RENTI AL/PL ATELE T platelets 165 x10e3 /uL 150-45 0 Not Available [facility] [address] [place], [address], 05/19/2023 20:09:47 05/19/19 24 05/19/2023 CBC WITH DIFFE RENTI AL/PL ATELE T neutrophils 70 % notest b. Not Available [facility] [address] [place], [address], 05/19/2023 20:09:47 05/19/19 24 05/19/2023 CBC WITH DIFFE RENTI AL/PL ATELE T lymphs 20 % notest b. Not Available [facility] [address] [place], [address], 05/19/2023 20:09:47 05/19/19 24 05/19/2023 CBC WITH DIFFE RENTI AL/PL ATELE T monocytes 7 % notest b. Not Available [facility] [address] [place], [address], 05/19/2023 20:09:47 05/19/19 24 05/19/2023 CBC WITH DIFFE RENTI AL/PL ATELE T eos 3 % notest b. Not Available [facility] [address] [place], [address], 05/19/2023 20:09:47 05/19/19 24 05/19/2023 CBC WITH DIFFE RENTI AL/PL ATELE T basos 0 % notest b. Not Available [facility] [address] [place] [address], [address], 05/19/2023 20:09:47 05/19/19 24 05/19/2023 CBC WITH DIFFE RENTI AL/PL ATELE T neutrophils (absolute) 5.0 x10e3 /uL 1.4-7. 0 Not Available [facility] [address] [place], [address], 05/19/2023 20:09:47 05/19/19 24 05/19/2023 CBC WITH DIFFE RENTI AL/PL ATELE T lymphs (absolute) 1.4 x10e3 /uL 0.7-3. 1 Not Available [facility] [address] [place], [address], 05/19/2023 20:09:47 05/19/19 24 05/19/2023 CBC WITH DIFFE RENTI AL/PL ATELE T monocytes(ab solute) 0.5 x10e3 /uL 0.1-0. 9 Not Available [facility] [address] [place], [address], 05/19/2023 20:09:47 05/19/19 24 05/19/2023 CBC WITH DIFFE RENTI AL/PL ATELE T eos (absolute) 0.2 x10e3 /uL 0.0-0. 4 Not Available [facility] [address] [place] [address], [address], 05/19/2023 20:09:47 05/19/19 24 05/19/2023 CBC WITH DIFFE RENTI AL/PL ATELE T baso (absolute) 0.0 x10e3 /uL 0.0-0. 2 Not Available [facility] [address] [place], [address], 05/19/2023 20:09:47 05/19/19 24 05/19/2023 CBC WITH DIFFE RENTI AL/PL ATELE T immature granulocytes 0.3 % notest b. Not Available [facility] [address] [place], [address], 05/19/2023 20:09:47 05/19/19 24 05/19/2023 CBC WITH DIFFE RENTI AL/PL ATELE T immature grans (abs) 0.0 x10e3 /uL 0.0-0. 1 Not Available [facility] [address] [place], [address], 05/19/2023 20:09:47 05/19/19 24 05/19/2023 CBC WITH DIFFE RENTI AL/PL ATELE T NRBC 0 % 0-0 Not Available [facility] [address] [place], [address], 05/19/2023 20:09:47 05/19/19 24 05/20/2023 TSH TSH 0.970 uIU/m L 0.450- 4.500 Not Available [facility] ([facility]) [address] [facility], [place], [address], 05/20/2023 08:21:57 11/11/19 24 11/14/2023 IGP, APTIM A HPV, RFX 16/18 ,45 HPV aptima POSITI VE negati ve abnormal This nucle ic acid ampli ficat ion test detec ts fourt een high- risk HPV types (16,1 8,31, 33,35 ,39,4 5,51, 52,56 ,58,5 9,66, 68) witho ut diffe renti ation . Not Available [facility] ([facility]) [address] [facility], [place], [address], 11/16/2023 03:36:52 11/11/19 24 11/15/2023 IGP, APTIM A HPV, RFX 16/18 ,45 diagnosis: COMMEN T NEGAT RANDELL FOR INTRA EPITH ELIAL LESIO N OR MALIG JORDI . FUNGA L ORGAN ISMS MORPH OLOGI MIR CONSI STENT WITH CARMINA DA SPECI ES ARE PRESE NT. Not Available [facility] ([facility]) [address] [place], [address], 11/16/2023 03:36:52 11/11/19 24 11/15/2023 IGP, APTIM A HPV, RFX 16/18 ,45 specimen adequacy: JOSEFA Collier Satis facto ry for evalu ation . Endoc ervic al and/o r squam ous metap lasti c cells (endo cervi amy compo nent) are prese nt. Not Available [facility] ([facility]) [address] [place], [address], 11/16/2023 03:36:52 11/11/19 24 11/15/2023 IGP, APTIM A HPV, RFX 16/18 ,45 clinician provided ICD10: JOSEFA Collier R87.8 10 N87.0 Not Available [facility] ([facility]) [address] [place], [address], 11/16/2023 03:36:52 11/11/19 24 11/15/2023 IGP, APTIM A HPV, RFX 16/18 ,45 performed by: JOSEFA plascencia, Ezequiel collier (ASCP ) Not Available [facility] ([facility]) [address] [place], [address], 11/16/2023 03:36:52 11/11/19 24 11/15/2023 IGP, APTIM A HPV, RFX 16/18 ,45 . . Not Available [facility] ([facility]) [address] [place], [address], 11/16/2023 03:36:52 11/11/19 24 11/15/2023 IGP, APTIM A HPV, RFX 16/18 ,45 note: JOSEFA Collier The Pap smear is a scree rigo test desig susy to aid in the detec tion of alber ligna nt and malig nant condi tions of the uteri ne cervi x. It is not a diagn ostic proce dure and shoul d not be used as the sole means of detec ting cervi amy cance r. Both false -posi tive and false -nega tive repor ts do occur . Not Available [facility] ([facility]) [address] [facility], [place], [address], 11/16/2023 03:36:52 11/11/19 24 11/15/2023 IGP, APTIM A HPV, RFX 16/18 ,45 test methodology: COMMEN T This liqui d based ThinP rep(R ) pap test was azam jain with the use of an image guide rufina driscoll. Not Available [facility] ([facility]) [address] [place], [address], 11/16/2023 03:36:52 11/11/19 24 11/15/2023 IGP, APTIM A HPV, RFX 16/18 ,45 HPV genotype reflex COMMEN T Crite daryl met, see HPV Genot ype resul ts. Not Available [facility] ([facility]) [address] [place], [address], 11/16/2023 03:36:52 11/11/19 24 11/16/2023 HPV GENOT YPES 16/18 ,45 HPV genotype 16 Negati ve negati ve Not Available [facility] ([facility]) [address] [place], [address], 11/16/2023 03:36:53 11/11/19 24 11/16/2023 HPV GENOT YPES 16/18 ,45 HPV genotype 18,45 Negati ve negati ve Not Available [facility] ([facility]) [address] [place], [address], 11/16/2023 03:36:53 05/10/19 25 05/10/2024 LIPID PANEL cholesterol, total 147 mg/dL 100-19 9 Not Available [facility] [address] [place], [address], 05/10/2024 03:09:03 05/10/19 25 05/10/2024 LIPID PANEL triglyceride s 260 mg/dL 0-149 above high normal Not Available [facility] [address] [place], [address], 05/10/2024 03:09:03 05/10/19 25 05/10/2024 LIPID PANEL HDL cholesterol 41 mg/dL 40-999 Not Available [facility] Department [address] [place], [address], 05/10/2024 03:09:03 05/10/19 25 05/10/2024 LIPID PANEL VLDL cholesterol amy 52 mg/dL 5-40 above high normal Not Available [facility] [address] [place] [address], [address], 05/10/2024 03:09:03 05/10/19 25 05/10/2024 LIPID PANEL LDL chol calc (nih) 96 mg/dL 0-99 Not Available [facility] [address] [place], [address], 05/10/2024 03:09:03 05/10/19 25 05/10/2024 COMP. METAB OLIC PANEL (14) glucose 78 mg/dL 70-99 Not Available [facility] [address] [place], [address], 05/10/2024 03:09:04 05/10/19 25 05/10/2024 COMP. METAB OLIC PANEL (14) BUN 13 mg/dL 6-24 Not Available [facility] [address] [place], [address], 05/10/2024 03:09:04 05/10/19 25 05/10/2024 COMP. METAB OLIC PANEL (14) creatinine 1.04 mg/dL 0.76-1 .27 Not Available [facility] [address] [place] [address], [address], 05/10/2024 03:09:04 05/10/19 25 05/10/2024 COMP. METAB OLIC PANEL (14) eGFR 64 >=60 Units for eGFR value s are mL/mi n/1.7 3 The eGFR Calcu latio n has not been valid ated for patie nts under the age of 18. If test resul ts are displ ayed for a patie nt under the age of 18, disre debo that value . Not Available [facility] [address] [place] [address], [address], 05/10/2024 03:09:04 05/10/19 25 05/10/2024 COMP. METAB OLIC PANEL (14) BUN/creatini ne ratio 12 9-23 Not Available [facility] [address] [place] [address], [address], 05/10/2024 03:09:04 05/10/19 25 05/10/2024 COMP. METAB OLIC PANEL (14) sodium 142 mmol/ L 134-14 4 Not Available [facility] [address] [place] [address], [address], 05/10/2024 03:09:04 05/10/19 25 05/10/2024 COMP. METAB OLIC PANEL (14) potassium 4.2 mmol/ L 3.5-5. 2 Not Available [facility] [address] [place] [address], [address], 05/10/2024 03:09:04 05/10/19 25 05/10/2024 COMP. METAB OLIC PANEL (14) chloride 104 mmol/ L 96-106 Not Available [facility] [address] [place] [address], [address], 05/10/2024 03:09:04 05/10/19 25 05/10/2024 COMP. METAB OLIC PANEL (14) carbon dioxide, total 29 mmol/ L 20-29 Not Available [facility] [address] [place] [address], [address], 05/10/2024 03:09:04 05/10/19 25 05/10/2024 COMP. METAB OLIC PANEL (14) calcium 9.4 mg/dL 8.7-10 .2 Not Available [facility] [address] [place], [address], 05/10/2024 03:09:04 05/10/19 25 05/10/2024 COMP. METAB OLIC PANEL (14) protein, total 7.0 g/dL 6.0-8. 5 Not Available [facility] [address] [place], [address], 05/10/2024 03:09:04 05/10/19 25 05/10/2024 COMP. METAB OLIC PANEL (14) albumin 4.5 g/dL 3.8-4. 9 Not Available [facility] [address] [place] [address], [address], 05/10/2024 03:09:04 05/10/19 25 05/10/2024 COMP. METAB OLIC PANEL (14) globulin, total 2.5 g/dL 1.5-4. 5 Not Available [facility] [address] [place], [address], 05/10/2024 03:09:04 05/10/19 25 05/10/2024 COMP. METAB OLIC PANEL (14) A/G ratio 2.0 1.2-2. 2 Not Available [facility] [address] [place], [address], 05/10/2024 03:09:04 05/10/19 25 05/10/2024 COMP. METAB OLIC PANEL (14) bilirubin, total 0.6 mg/dL 0.0-1. 2 Not Available [facility] [address] [place], [address], 05/10/2024 03:09:04 05/10/19 25 05/10/2024 COMP. METAB OLIC PANEL (14) alkaline phosphatase 106 IU/L 44-121 Not Available [facility] Department [address] [place], [address], 05/10/2024 03:09:04 05/10/1905/10/2024 COMP. METAB OLIC PANEL (14) AST (SGOT) 20 IU/L 0-40 Not Available [facility] [address] [place], [address], 05/10/2024 03:09:04 05/10/1905/10/2024 COMP. METAB OLIC PANEL (14) ALT (SGPT) 19 IU/L 0-32 Not Available [facility] [address] [place], [address], 05/10/2024 03:09:04 05/10/19 25 05/09/2024 CBC, PLATE LET, NO DIFFE RENTI AL WBC 7.1 x10e3 /uL 3.4-10 .8 Not Available [facility] [address] [place], [address], 05/10/2024 03:09:05 05/10/1905/09/2024 CBC, PLATE LET, NO DIFFE RENTI AL RBC 4.45 x10e6 /uL 3.77-5 .28 Not Available [facility] [address] [place], [address], 05/10/2024 03:09:05 05/10/1905/09/2024 CBC, PLATE LET, NO DIFFE RENTI AL hemoglobin 13.8 g/dL 11.1-1 5.9 Not Available [facility] [address] [place], [address], 05/10/2024 03:09:05 05/10/1905/09/2024 CBC, PLATE LET, NO DIFFE RENTI AL hematocrit 41.2 % 34.0-4 6.6 Not Available [facility] [address] [place], [address], 05/10/2024 03:09:05 05/10/1905/09/2024 CBC, PLATE LET, NO DIFFE RENTI AL MCV 93 fL 79-97 Not Available [facility] [address] [place], [address], 05/10/2024 03:09:05 05/10/1905/09/2024 CBC, PLATE LET, NO DIFFE RENTI AL MCH 31.0 pg 26.6-3 3.0 Not Available [facility] [address] [place], [address], 05/10/2024 03:09:05 05/10/1905/09/2024 CBC, PLATE LET, NO DIFFE RENTI AL MCHC 33.5 g/dL 31.5-3 5.7 Not Available [facility] [address] [place], [address], 05/10/2024 03:09:05 05/10/1905/09/2024 CBC, PLATE LET, NO DIFFE RENTI AL RDW 12.7 % 11.5-1 4.5 Not Available [facility] [address] [place], [address], 05/10/2024 03:09:05 05/10/1905/09/2024 CBC, PLATE LET, NO DIFFE RENTI AL platelets 178 x10e3 /uL 150-45 0 Mean Plate let Volum e 12.7 fL 8.9-1 2.7 N Not Available [facility] [address] [place], [address], 05/10/2024 03:09:05 05/10/1905/09/2024 CBC, PLATE LET, NO DIFFE RENTI AL NRBC 0 % 0-0 Not Available [facility] [address] [place], [address], 05/10/2024 03:09:05 05/10/19 25 05/10/2024 TSH TSH 6.610 uIU/m L 0.450- 4.500 above high normal Not Available [facility] ([facility]) [address] [facility], [place], [address], 05/10/2024 03:09:07 05/29/19 25 05/28/2024 urina lysis , dipst ick Leukocytes Small Not Available In-Offi ce Order Internal Use Only DO Not Attach Compendium DO Not Attach Compendium, Do Not Delete/merge, [id number] 05/28/2024 14:27:22 05/29/19 25 05/28/2024 urina lysis , dipst ick Nitrite negati ve [id number]|2024-07-21 15:01:00|2024-07-21 15:01:00|XMS_ITS|BKG DAEMON|External Medical Summaries|[id number]|" Clinical Summary Created on: July 21, 2024 Ophelia Issa : 1970 Sex: Female Author Organization [facility] Address [address] [place] [address] [place] [address] Care Team Providers 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 This disclosure is being madepursuant to the Care Everywhere program and may not contain all information available regarding this patient. Last updated 17.[facility] Allergies Active Allergy Reactions Criticality Noted Date Comments Codeine Nausea and/or Vomiting Penicillins Nausea and/or Vomiting Medium Medications * Be aware that medications may not be up to date on this document. Alwaysverify current medications with the patient. VENTOLIN HFA 108 (90 BASE) MCG/ACT inhaler Inhale 1 puff by mouth once daily 03/15/2018 Active QVAR REDIHALER 40 MCG/ACT inhaler Inhale 1 puff by mouth as needed 03/15/2018 Active dicyclomine (BENTYL) 10 MG capsule Take 1 capsule by mouth as needed Active fluticasone propionate (FLONASE) 50 MCG/ACT nasal spray [place] 1 spray into each nostril once daily 02/22/2018 Active levothyroxine (SYNTHROID) 100 MCG tablet Take 1 tablet by mouth once daily 03/15/2018 Active loratadine (CLARITIN) 10 MG tablet Take 1 tablet by mouth as needed 02/22/2018 Active montelukast (SINGULAIR) 10 MG tablet Take 1 tablet by mouth at bedtime 03/15/2018 Active raNITIdine (ZANTAC) 150 MG tablet Take 1 tablet by mouth 2 times daily 03/15/2018 Active simvastatin (ZOCOR) 10 MG tablet Take 1 tablet by mouth once daily 03/15/2018 Active carbamide peroxide (DEBROX) 6.5 % otic solution Instill 5 drops into both ears Two times a week Active ketorolac (TORADOL) 10 MG tablet Take 1 tablet by mouth every 8 hours as needed for Pain 10 tablet 04/25/2018 Active busPIRone (BUSPAR) 7.5 MG tablet Take 7.5 mg by mouth 2 times daily Active Active Problems Problem Noted Date Diagnosed Date Intermittent monocular exotropia of right eye Immunizations Immunization Administration Dates Next Due INFLUENZA VACCINE 04/04/2018 Social History Tobacco Use Types Packs/Day Years Used Date Smoking Tobacco: Former Smokeless Tobacco: Never Comments:Light smoker when y oung Alcohol Use Standard Drinks/Week Comments No 0 (1 standard drink = 0.6 oz pur e alcohol) Comments No Sex and Gender Information Value Date Recorded Sex Assigned at Not on file Legal Sex Female 6:19 AM BUNG DROPPER Gender Identity Not on file Sexual Orientation Not on file Last Filed Vital Signs Vital Sign Reading Time Taken Comments Blood Pressure 140/74 04/25/2018 3:50 PM BUNG DROPPER Pulse 87 04/25/2018 3:50 PM BUNG DROPPER Temperature 36.8 C (98.2 F) 04/25/2018 3:00 PM BUNG DROPPER Respiratory Rate 14 04/25/2018 3:50 PM BUNG DROPPER Oxygen Saturation 97% 04/25/2018 3:50 PM BUNG DROPPER Inhaled Oxygen Concentration - - Weight 97.5 kg (215 lb) 04/25/2018 11:13 AM BUNG DROPPER Height 162.6 cm (5' 4 ) 04/25/2018 11:13 AM BUNG DROPPER Body Mass Index 36.9 04/25/2018 11:13 AM BUNG DROPPER Plan of Treatment Health Maintenance Due Date Last Done Comments COLOGUARD (AGES 45-75) - COLON CA SCREENING 1970 COLON MONITORING 1970 COLONOSCOPY - COLON CA SCREENING 1970 CT COLONOGRAPHY - COLON CA SCREENING 1970 Colorectal Cancer Screening 1970 FIT - COLON CA SCREENING 1970 FLEX SIG - COLON CA SCREENING 1970 MAMMOGRAM 1970 HIV SCREENING 1985 HEPATITIS C SCREENING 12/06/1988 DTAP/TDAP/TD VACCINES (1 - Tdap) 1989 HEPATITIS B VACCINE (1 of 3 - 19+ 3-dose series) 1989 PAP SMEAR 09/23/2000 09/23/1997 SCREENING FOR DIABETES 05/03/2018 PNEUMOCOCCAL VACCINE 50+ (1 of 1 - PCV) 2020 ZOSTER VACCINE (1 of 2) 2020 COVID-19 VACCINE (1 - season) 2023 DEPRESSION SCREENING 03/07/2024 INFLUENZA VACCINE (Season Ended) 2024 04/04/2018, 12/05/2017, 01/11/2017, Additional history exists HIB VACCINE Aged Out No longer eligi ble based on patient's age to complete this topic HPV VACCINE Aged Out No longer eligi ble based on patient's age to complete this topic MENINGOCOCCAL (Group B) VACCINE SHARED DECISION-MAKING Aged Out No longer eligible based on patient's age to complete this topic MENINGOCOCCAL GROUPS A/C/Y/W VACCINE Aged Out No longer eligible based on patient's age to complete this topic Procedures Procedure Name Priority Date/Time Associated Diagnosis Comments CYTOLOGY SMEAR PAP SHERLEY 09/23/1997 10 :27 AM CDT from Last 3 Months or Most Recently Relevant to Health Maintenance Results * CYTOLOGY SMEAR PAP (09/23/1997 10:27 AM CDT) Result CASE NUMBER [id number] Comment: ORDERING PHYSICIAN SEUN PIERSON SPECIMEN TYPE PAP Smear Date 09/23/1997 Procedure Cervical/Endocervical, 1 smear received Specimen Adequacy Satisfactory for Evaluation Categorization Benign Cellular Changes Comment Predominance of Coccobacilli Consistent with Shift in Vaginal Aicha. Snomed. 09/26/1997 1640 <2> Records Management Analyst Berkley French (ASCP) PAP Footnote The PAP smear is only a screening procedure to aid in the detection of cervical cancer and its precursors. It is not a diagnostic procedure and should not be used as the sole means to detect cervical cancer. Both false negative and false positive results have been experienced. MISCELLANEOUS SAMPLES / Unknown 09/23/1997 10:27 AM CDT 09/25/1997 10:28 AM CDT Historical Provider LAB - PATHOLOGY/CYTOLOGY ORDERABLES Final Result from Last 3 Months or Most Recently Relevant to Health Maintenance Insurance MEDICAID - OUT OF [facility] [id number] [facility] ALT Advance Directives * Full Code (Latest Code Status on File) Date Activated Date Inactivated Comments 04/25/2018 2:21 PM 04/25/2018 5:34 PM Care Teams Assistant Track And Field Coach Relationship Specialty Start Date End Date Unknown, Provider PCP - General 04/25/18 "
--- OUTSIDE RECORDS SUMMARY | 2024-07-21 15:01 | XMS_ITS | Clinical Summary ---
Author Organization [facility] Address [address] [place] [address] Phone Care Team Providers Care Passenger Conductor Name Role Phone Marilin Tesfaye APRN, OPTOMETRIST PRESIDENT/PRACTICE OWNER Unavailable Lorena Dempsey APRN, OPTOMETRIST PRESIDENT/PRACTICE OWNER Primary Care Provider Allergies Active Allergy Reactions Criticality Noted Date Comments Codeine Nausea,Vomiting Other reaction(s): Nausea and/or Vomiting Penicillins Nausea Medium Other reaction(s): Nausea and/or Vomiting Medications QVAR REDIHALER 40 MCG/ACT AEROSOL, BREATH ACTIVATED as needed. 8 Active levothyroxine (SYNTHROID) 100 MCG Tablet every morning. Acti ve montelukast (SINGULAIR) 10 MG Tablet montelukast 10 mg tablet TAKE 1 TABLET BY MOUTH EVERY NIGHT Active BusPIRone HCl 7.5 MG Tablet Take by mouth as needed. Active IRON PO Take by mouth as needed. Active fluticasone (FLONASE) 50 MCG/ACT Suspension 1-2 Sprays by Nasal route daily as needed. Use in each nostril as directed. Active Cholecalciferol (VITAMIN D PO) Take by mouth. Active Naproxen Sodium 220 MG CapsuleIndicatio ns:Pain Take 1 Capsule by mouth as needed. Indications: Pain Active HYDROcodone-acet aminophen (NORCO) 5-325 MG Tablet Take 1-2 Tabs by mouth every 4 hours as needed for Mild or more severe pain. 15 Tab 8 Active Additional Information Patient not taking.Reported on 01/10/2018 simvastatin (ZOCOR) 10 MG Tablet TK 1 T PO QD 2 8 Active azithromycin (ZITHROMAX) 250 MG Tablet 2 tab(s) daily for 1 day, then 1 tab(s) daily for days 2-5. 6 Tab 9 Active Additional Information Patient not taking.Reported on 07/18/2018 albuterol 108 (90 Base) MCG/ACT Aerosol Solution take 2 Puffs by inhalation every 6 hours as needed for Wheezing. 1 Inhaler 9 Active Albuterol Sulfate (VENTOLIN HFA IN) take 90 mcg by inhalation as needed. Active fluticasone (FLOVENT HFA) 110 MCG/ACT Aerosol take 2 Puffs by inhalation 2 times daily. Active otherIndications :pt states she has a nebulizer at home that she uses as needed; pt does not know the name or dosage by Other route. POWER NEB ULTRA Indications: pt states she has a nebulizer at home that she uses as needed; pt does not know the name or dosage Active fluconazole (DIFLUCAN) 100 MG TabletIndication s:Esophageal candidiasis (HCC) Take 1 Tab by mouth daily. 5 Tab 9 Active Additional Information Patient not taking.Reported on 09/10/2022 cetirizine (ZYRTEC ALLERGY) 10 MG TabletIndication s:Seasonal allergic rhinitis due to pollen 1tab po QD prn allergies 30 Tab 11 9 Active Additional Information Patient not taking.Reported on 03/04/2023 dicyclomine (BENTYL) 10 MG Capsule Take 1 Cap by mouth 3 times daily as needed for Other (abdominal cramping). 90 Cap 3 0 Active triamcinolone (KENALOG) 0.1 % Cream Apply 2 times daily. FACE Active azelastine (OPTIVAR) 0.05 % Solution 3 Active carbamide peroxide (DEBROX) 6.5 % Solution Place 5 Drops in affected ear(s). Active ibuprofen (MOTRIN) 200 MG Tablet Take 200 mg by mouth. Active polyethylene glycol (GLYCOLAX) 17 GM/SCOOP Powder MIX 17 GRAMS IN 8 OZ OF LIQUID AND DRINK DAILY NEEDED 3 Active tiZANidine (ZANAFLEX) 4 MG Tablet 3 Active omeprazole (PriLOSEC) 20 MG CAPSULE DELAYED RELEASE TAKE 1 CAPSULE BY MOUTH EVERY DAY AT NOON 4 Active ondansetron (ZOFRAN-ODT) 4 MG TABLET DISPERSIBLE DISSOLVE 1 TABLET ON THE TONGUE EVERY 6 HOURS NEEDED FOR NAUSEA OR VOMITING 4 Active Active Problems Problem Noted Date Diagnosed Date Dysphagia 05/06/2023 Gastritis 05/06/2023 PNAR (perennial non-allergic rhinitis) 9 Laryngopharyngeal reflux 08/24/2018 Seasonal allergic rhinitis due to pollen 019 Ventral hernia without obstruction or gangrene 1 Family History Medical History Relation Name Comments Diabetes Father Heart Disease Father Parkinsonism Father Colon Cancer Maternal Aunt Colon Cancer Maternal Grandfather Colon Cancer Maternal Uncle Cancer Mother skin Thyroid Disease Mother Relation Name Status Comments Father Alive Maternal Aunt Maternal Grandfather Maternal Uncle Mother Alive Social History Tobacco Use Types Packs/Day Years Used Date Smoking Tobacco: Never Smokeless Tobacco: Never Tobacco Cessation:Counseling Given: Not Answered Alcohol Use Standard Drinks/Week Comments Not Currently 0 (1 standard drink = 0.6 oz pur e alcohol) Sexually Active Control Partners Comments Not Currently Surgical Comments No Sex and Gender Information Value Date Recorded Sex Assigned at Not on file Legal Sex Female 11:35 PM CDT Gender Identity Not on file Sexual Orientation Not on file Occupation Industry Job Start Date Job End Date disabled Not on file Not on file Not on file Last Filed Vital Signs Vital Sign Reading Time Taken Comments Blood Pressure 146/82 05/31/2023 1:20 PM CDT Pulse 43 05/31/2023 1:20 PM CDT Temperature 36.8 C (98.2 F) 05/31/2023 1:20 PM CDT Respiratory Rate 14 05/31/2023 1:20 PM CDT Oxygen Saturation 96% 05/31/2023 1:20 PM CDT Inhaled Oxygen Concentration - - Weight 105.9 kg (233 lb 6.4 oz) 05/31/2023 1:20 PM CDT Height 160 cm (5' 3 ) 05/31/2023 1:20 PM CDT Body Mass Index 41.34 05/31/2023 1:20 PM CDT Plan of Treatment Upcoming Encounters Date Type Department Care Team (Late st Contact Info) Description 07/24/2024 1:30 PM CDT Office Visit [facility] - Pulmonology & Sleep Medicine - [place] [address] [place] [address] Sylwia Downing, DIVISION ROADMASTER, OPTOMETRIST PRESIDENT/PRACTICE OWNER [address] [place] [address] Health Maintenance Due Date Last Done Comments Hepatitis C Virus (HCV) Screening 1970 Hepatitis B Immunization (1 of 3 - 19+ 3-dose series) 1989 Pap Smear 12/12/1991 Cervical Cancer Screening (CCS) 2000 HPV/Cotest 2000 Cologuard 2020 Immunochemical Fecal Occult Blood 2020 Pneumococcal Immunization (50+ years) (2 of 2 - PCV) 2020 06/28/2018 Zoster Immunization (1 of 2) 2020 SARS-COV-2 Immunization ( season) 2023 03/19/2021, 06/27/2020, 05/30/2020 Mammogram 04/06/2024 04/06/2023, 01/05, 10/27/2017 Colonoscopy 09/22/2027 09/21/2022, 02/02/2017 Colorectal Cancer Screening 09/22/2027 Respiratory Syncytial Virus (RSV) Immunization (Adult) (1 - 1-dose 75+ series) 2045 09/21/2022, 02/02/2017 Pneumococcal Immunization Combined Discontinued 06/28/2018 Discussion re Starting/Frequency of Mammograms Discontinued 04/06/2023, 01/18/2020, 10/27/2017 Influenza Immunization Completed , 12/24/2022, 12/21/2022, Additional history exists DTaP/Tdap/Td Immunization Discontinued 05/28/2024, TdaP Immunization Completed 05/28/2024, 02/18/2014 Human Papillomavirus (HPV) Immunization Aged Out No longer eligible based on patient's age to complete this topic Meningococcal Immunization (ACWY) Aged Out No longer eligible based on patient's age to complete this topic Rotavirus Immunization Aged Out No lo nger eligible based on patient's age to complete this topic Medical Devices Implanted Type Area Service Correspondent Device Identifier Shelf Expiration Date Model / Serial / Lot Mesh Srg Ventralight St Sepra Echo Ps 4.5in Mfl Ltwt Abs Loprfl Strl Seprafilm Polyp Hydrogel [place] - [id number] Implanted:Qty: 1 on 12/29/2017 by Itz Pace MD at [facility] IMPLANT N/A: Abdomen [employer] 06/02/2019 [id number] / [id number] / [id number] Procedures Procedure Name Priority Date/Time Associated Diagnosis Comments EBEN SCREENING BILATERAL DIGITAL W CAD W GELY Routine 10/27/2017 10:01 AM CDT Screening breast examination HM COLONOSCOPY Routine 02/02/2017 from Last 3 Months or Most Recently Relevant to Health Maintenance Results * EBEN SCREENING BILATERAL DIGITAL W CAD W GELY (10/27/2017 10:01 AM CDT) Anatomical Region Laterality Modality breast Bilateral Mammography 10/27/2017 9:31 AM CDT Narrative 10/28/2017 6:50 AM CDT - EBEN SCREENING BILATERAL DIGITAL W CAD W GELY BILATERAL DIGITAL SCREENING MAMMOGRAM 3D/2D WITH CAD WITH MEDIOLATERAL OBLIQUE CRANIOCAUDAL: 10/27/2017 The study was acquired using digital technology and interpreted from soft copy. Current study was also evaluated with ICAD version 7.2. CLINICAL: Routine screening. Patient has inferior and medial breast fullness. Patient has no complaints. No personal history of cancer. No family history of breast cancer. COMPARISONS: Comparison is made to exams dated: 09/03/2014, 06/04/2013, and 06/06/2009 [facility]. BREAST TISSUE:The tissue of both breasts is heterogeneously dense. This may lower the sensitivity of mammography. FINDINGS: No significant masses, calcifications, or other findings are seen in either breast. There has been no significant interval change. IMPRESSION: BI-RAD 1 NEGATIVE There is no mammographic evidence of malignancy. A 1 year screening mammogram is recommended. The patient has been or will be contacted. The patient will be entered into a reminder system with a target due date of 1 year for her next screening exam. Electronically signed by: Mellissa davis/penrad:10/27/2017 14:00:50 Technical Systems Architect: Shannon VIZCAINO)(M), [facility] letter sent: Normal Exam Reading location: MON BI-RADS: 1 Negative Procedure Note Mellissa Holman MD - 10/28/2017 - EBEN SCREENING BILATERAL DIGITAL W CAD W GELY BILATERAL DIGITAL SCREENING MAMMOGRAM 3D/2D WITH CAD WITH MEDIOLATERAL OBLIQUE CRANIOCAUDAL: 10/27/2017 The study was acquired using digital technology and interpreted from soft copy. Current study was also evaluated with ICAD version 7.2. CLINICAL: Routine screening. Patient has inferior and medial breast fullness. Patient has no complaints. No personal history of cancer. No family history of breast cancer. COMPARISONS: Comparison is made to exams dated: 09/03/2014, 06/04/2013, and 06/06/2009 [facility]. BREAST TISSUE:The tissue of both breasts is heterogeneously dense. This may lower the sensitivity of mammography. FINDINGS: No significant masses, calcifications, or other findings are seen in either breast. There has been no significant interval change. IMPRESSION: BI-RAD 1 NEGATIVE There is no mammographic evidence of malignancy. A 1 year screening mammogram is recommended. The patient has been or will be contacted. The patient will be entered into a reminder system with a target due date of 1 year for her next screening exam. Electronically signed by: Mellissa davis/penrad:10/27/2017 14:00:50 Technical Systems Architect: Shannon VIZCAINO)(M), [facility] letter sent: Normal Exam Reading location: MON BI-RADS: 1 Negative us Janett Soliz MD IMG MAMMO ORDERABLES Fin al Result * HM COLONOSCOPY (02/02/2017) us Dino Spicer MD PROCEDURE/MINOR SURGICAL OR DERABLES Final Result from Last 3 Months or Most Recently Relevant to Health Maintenance Insurance MEDICAID [employer] Care Teams Passenger Conductor Relationship Specialty Start Date End Date Lorena Dempsey APRN, OPTOMETRIST PRESIDENT/PRACTICE OWNER [address] [facility] [address] [place] [address] PCP - General Advanced Practice Nurse 06/07/24 Marilin Tesfaye APRN, OPTOMETRIST PRESIDENT/PRACTICE OWNER [address] [place] [address] Nurse Practitioner Advanced Practice Nurse 03/04/23
== END 2024-07-20 17:40 | disposition home or self-care (01) ==
PROVIDERS: Emergency Provider Nurse Practitioner Family
DX: S86.911A Strain of unspecified muscle(s) and tendon(s) at lower leg level, right leg, initial encounter (principal); X50.9XXA Other and unspecified overexertion or strenuous movements or postures, initial encounter
CPT/HCPCS: 99213; G0463